=== PATIENT | female | born 1975 | race Two or more races ===

== ENCOUNTER 2022-04-14 12:56 | Outpatient (RCR) | payer OTHER, SELFPAY | END 2022-06-01 13:31 | disposition home or self-care (01) | LOC: HO.OT 12:56 | PROVIDERS: PCP Internal Medicine; Visit Provider Internal Medicine Rheumatology | DX: M19.041 Primary osteoarthritis, right hand (principal); M19.042 Primary osteoarthritis, left hand; M77.9 Enthesopathy, unspecified | CPT/HCPCS: 97110; 97166 ==

== ENCOUNTER → 2023-01-27 11:13 | Outpatient (BNVA) | payer OTHER, SELFPAY | PROVIDERS: PCP Internal Medicine; Visit Provider Orthopaedic Surgery ==

== ENCOUNTER 2024-06-26 11:25 | Outpatient (AMB) | payer OTHER, SELFPAY ==
--- NOTE | 2024-06-26 11:25 | MHC.OFFVIS ---
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 States Right LE is worst than Left LE. Pt states that she has had VV for many years and wosrening more recently, does have itching. Does have some LE swelling when on feet all day. 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 Complaints include pain/itchiness over varicosities and swelling of lower extremities. It has been affecting their daily activities including walking and standing. It is noted more so in right leg. She is not a smoker and is not a diabetic. Patient denies any previous venous surgery or injections. Patient denies any history of DVT/ PE. Patient denies any history of phlebitis. Trial of compression includes - elevation They now present for vascular evaluation regarding their varicose veins. FORMERLY [facility], [facility] Social History Current occupational status: employed Current occupation: right hand dominant Review of Systems Const Reports as per HPI and Denies weakness ENT Reports Normal hearing present and Denies dizziness Card Reports as per HPI, Denies chest pain, Denies chest pain at rest, Denies chest pain with activity, Denies dyspnea and Denies dyspnea on exertion Resp Reports as per HPI, Denies cough, Denies dyspnea and Denies dyspnea on exertion GI Reports as per HPI, Denies abdominal pain, Denies nausea and Denies vomiting Musc Denies numbness Skin/Breast Reports as per HPI, Denies erythema and Denies wounds Neuro Reports Normal hearing present, Denies dizziness, Denies numbness, Denies Sensory deficit (Neuro) and Denies weakness Psych Reports no additional complaints Endo Reports no additional complaints Physical Exam Const General: healthy appearing and no acute distress Orientation/consciousness: patient oriented x3 HEENT Head: Yes normal to inspection Ears: hearing grossly normal bilaterally Mouth: Normal oral and palatal mucosa present Resp Effort & Inspection: normal respiratory effort and able to speak in complete sentences Auscultation: clear to auscultation bilaterally Cardio Jugular venous distension: no JVD Rate: regular rate Rhythm: regular rhythm Heart sounds: S1 normal heart sound present and S2 normal heart sound present Bruits: no abdominal aortic bruits, no carotid bruits, no femoral bruits and no renal bruits Peripheral pulses: Peripheral pulses 2+ throughout GI Inspection: Yes normal to inspection Palpation (GI): No Abdominal aortic bruit present Skin General skin exam: no rashes or lesions noted Wounds: no wounds Hair: normal Neuro General: patient oriented x3 Cranial nerves: Yes Normal hearing present Cognition (Neuro): normal cognition Gait exam (Neuro): Normal gait present Motor exam (neuro): 5/5 motor strength present throughout Sensory Exam: No Sensory deficit (Neuro) Extrem Other: Bilateral lower extremities: Multiple areas of spider veins noted. Itching/pain noted in the right upper thigh area with significant spider veins. Palpable DP pulses. No swelling noted now; however patient states by the end of the day that will be swelling in bilateral lower extremities. CEAP: C - 3 E - primary A - superficial P - reflux General: Yes normal to inspection, Yes full ROM, Yes capillary refill normal and Yes normal gait Assessment & Plan Assessment & Plan (1) Varicose veins of both lower extremities with inflammation: Code(s): I83.11 - Varicose veins of right lower extremity with inflammation; I83.12 - Varicose veins of left lower extremity with inflammation Category: Medical Plan: Tammie is presenting today as a referral for bilateral lower extremity varicose veins, worsening. In short, the patient has evidence of venous insufficiency. I have discussed the pathophysiology with the patient. In addition I have provided informational material regarding venous disease to the patient. We have discussed conservative measures including compression, elevation, and exercise. I have also provided a handout regarding appropriate use of compression stockings and where to purchase good compression stockings as well. I have taken the liberty of ordering venous insufficiency testing with the patient. They will follow up with me after testing. The patient had an opportunity to ask questions regarding the treatment plan. All questions were answered. Imaging studies, laboratory studies and physical exam results were discussed and reviewed in detail. No major barriers to understanding were identified. The patient expressed understanding and agreement with the above treatment plan. The patient is aware they should contact our office by phone for worsening of the current condition or the appearance of new symptoms. Thank you for allowing me to participate in the vascular care of this patient. If you have any questions or concerns regarding the treatment for the above condition please do not hesitate to contact me. The office telephone contact is [phone]. This note is constructed using voice recognition software. While every effort has been made to ensure accuracy, microbial specialist errors may have been included. Thank you for allowing me to participate in the care of your patient. Yours sincerely, MARIAM Quintero Orders: Orders US venous duplex LE BI 1 Week I83.11 - Varicose veins of right lower extremity with inflammation, I83.12 - Varicose veins of left lower extremity with inflammation Coding Level of Care Code New Pt Level 4 (69810) Diagnoses Varicose veins of both lower extremities with inflammation I83.11; I83.12
== END 2024-06-26 15:34 | disposition home or self-care (01) ==
PROVIDERS: PCP Internal Medicine; Visit Provider Physician Assistant Surgical
DX: I83.11 Varicose veins of right lower extremity with inflammation (principal); I83.12 Varicose veins of left lower extremity with inflammation
CPT/HCPCS: 99204

== ENCOUNTER 2024-07-19 13:50 | Emergency (ER) | payer OTHER, SELFPAY ==
[2024-07-19] VITALS (7 sets, daily range): BP systolic 146–207; BP diastolic 101–118; PULSE 68–104; RESP 14–20; TEMP 36.4–37.1; O2SAT 96–100; BMI 25.4
--- NOTE | 2024-07-19 13:54 | ED_ITS ---
HPI - General Adult General Chief complaint: Arrhythmia/Palpitations Stated complaint: palpitations, high BP Time Seen by Provider: 07/19/24 19:01 Source: patient Mode of arrival: ambulatory Limitations: no limitations History of Present Illness ED Provider: Dr. Merly Silva HPI narrative: Patient comes to the emergency room complaining of high blood pressure . Patient states that every time that she sees her OBGYN, patient has high blood pressure. However, over last few days, at work patient has had elevated blood pressures. Patient states that today at work she was feeling palpitations, askeda nurse to take her blood pressure and it was above 200. Patient states that over last few months, patient has had issues with her blood pressure increasing. Seems that patient is being titrated off of estrogen which she takes for hot flashes. Patient denies any chest pain or shortness of breath, no near syncopal episodes. Related Data Home Medications ?Medication ?Instructions ?Recorded ?Confirmed estradiol 1 mg tablet 1 mg PO DAILY 01/27/23 Previous Rx's ?Medication ?Instructions ?Recorded naproxen 500 mg tablet (Naprosyn) 500 mg PO BID #20 tabs 01/10/23 amlodipine 10 mg tablet 10 mg PO DAILY #90 tabs 07/20/24 Allergies Allergy/AdvReac Type Severity Reaction Status Date / Time Seasonal Allergies Allergy Mild Itchy Eyes Verified 07/19/24 13:56 cetirizine [From Zyrtec] AdvReac Nausea Verified 07/19/24 13:57 Review of Systems 2 Review of Systems: Constitutional : No Weight loss, No Fever, No Chills, No Night Sweats, No Fatigue, No Malaise ENT/Mouth : No Hearing loss, No Ear Pain, No Nasal Congestion, No Sinus Pain, No Hoarseness, No sore throat, No Rhinorrhea, No Swallowing Difficulty Eyes: No Eye Pain, No Swelling, No Redness, No Foreign Body, No Discharge, No Vision Changes Cardiovascular : Complaining of high blood pressure, No Chest Pain, No SOB, No Dyspnea on Exertion, No Orthopnea, No Edema, No Palpitations Respiratory : No Cough, No Sputum, No Wheezing, No Smoke Exposure, No Dyspnea Gastrointestinal : No Nausea, No Vomiting, No Diarrhea, No Constipation, No abdominal Pain, No Hematochezia, No Melena Genitourinary : no irregular bleeding, No Dysuria, No Urinary Frequency, No Hematuria, No Urinary Incontinence, No Urgency, No Flank Pain, No Urinary Flow Changes, No Hesitancy Musculoskeletal : No joint pain, No Myalgias, No Joint Swelling Skin : No Skin Lesions, No rash Neuro : No Weakness, No Numbness, No Paresthesias, No Loss of Consciousness, No Dizziness, No Headache Psych : No Anxiety/Panic, No Depression, No SI/HI/AH/VH, No Social Issues, Heme/Lymph: No Bruising, No Bleeding,No Lymphadenopathy Endocrine : No Polyuria, No Polydipsia, No Temperature Intolerance [facility] Social History Social History Alcohol intake: current Alcohol intake frequency: holidays/special occasions only Alcohol type: hard liquor Smoked in Last 30 Days: No Use of substances other than those prescribed or required for medical reasons: Yes Advance Directives: No Advance Directives Information Provided: Yes Current occupational status: employed Current occupation: right hand dominant Physical Exam ED Vital Signs: Vital Signs - 24 hr 07/19/24 13:54 07/19/24 16:59 07/19/24 18:38 Temperature 97.6 F 98.8 F Pulse Rate 104 H 91 91 Respiratory Rate 20 16 16 Blood Pressure 205/118 H 201/113 H 207/109 H Pulse Oximetry 100 98 97 Oxygen Delivery Method Room Air Room Air 07/19/24 19:33 07/19/24 21:46 07/19/24 22:00 Temperature 98.0 F 97.7 F Pulse Rate 90 68 75 Respiratory Rate 15 17 14 Blood Pressure 183/116 H 146/101 H 146/101 H Pulse Oximetry 98 97 96 Oxygen Delivery Method Room Air Room Air Room Air 07/19/24 23:27 Temperature Pulse Rate Respiratory Rate Blood Pressure 160/102 H Pulse Oximetry Oxygen Delivery Method BMI result Body Mass Index 25.4 Course Course Course Narrative: This is a rapid medical exam performed by Erika Keith NP: Additional HPI, ROS, PE not included below will be deferred to primary provider. Patient is a 49-year-old female presenting to the ED with complaint of palpitations since Monday, states they have since resolved. BP 196/123, HR 118 in triage. Plan: EKG, labs Medications Administered Discontinued Medications Generic Name Dose Route Start Last Admin Trade Name Freq PRN Reason Stop Dose Admin Amlodipine Besylate 10 mg 07/19/24 23:04 07/19/24 23:27 Amlodipine Besylate 10 Mg Tablet PO 07/19/24 23:05 10 mg ONCE ONE Administration Protocol Medical Decision Making Medical Decision Making [facility] Narrative: My interpretation of EKG: Normal sinus rhythm, heart rate 90, no ST segment depression or elevation, nonspecific T-wave inversion in lead 3, QTC 462 My interpretation of labs: Patient's hematology and chemistry did not show any obvious abnormality, troponin negative Patient's blood pressure during physical exam was 190s systolic. Patient's blood pressure has been ranging between 146 systolic up to 205 systolic. Patient states that she has had high blood pressures at her OBGYN, in the ED and in other settings as well. Patient receiving a dose of 10 mg amlodipine at this time. Patient states that several years ago she was diagnosed with hypertension, patient was started on a medication that she believes was hydrochlorothiazide, patient states that she had to urinate quite a bit and also caused her potassium to dropped significantly. Patient's blood pressure 160/102. Patient asymptomatic -patient will schedule an appointment to follow-up with a new PCP, in the meantime, patient instructed to follow-up in the walk-in clinic. However, if anything changes, new symptoms to return emergently to the emergency room. It was considered adding hydrochlorothiazide to the patient's home medication. However, as noted above, she did not tolerated years ago as she develop significant hypokalemia and frequent urination which she could not tolerate well. Differential Diagnosis Differential Diagnoses: The differential diagnosis associated with the presentation includes (Hypertension urgency, hypertensive emergency, new onset hypertension) Lab Data [facility] Lab Attestation statement: I reviewed the patient's lab results. 07/19/24 14:14 07/19/24 14:14 Labs: Lab Results 07/19/24 Range/Units 14:14 WBC 6.1 (4.8-10.8) X10*3/uL RBC 4.77 (4.20-5.50) X10*6/uL Hgb 14.0 (12.0-16.0) g/dl Hct 40.5 (37.0-47.0) % MCV 84.9 (80.0-98.0) fL MCH 29.4 (27.0-33.0) pg MCHC 34.6 (31.0-35.0) g/dl RDW 12.1 (11.0-16.0) % Plt Count 299 (160-400) X10*3/uL MPV 10.1 (9.4-12.3) fL Immature Gran % (Auto) 0.3 (0.0-0.4) % Neut % (Auto) 47.4 (45-73) % Lymph % (Auto) 43.7 H (20-40) % [place] % (Auto) 5.3 (2-11) % Eos % (Auto) 2.1 (0-4) % Baso % (Auto) 1.2 (0-2) % Lymph # (Auto) 2.7 (1.2-4.9) X10*3/uL [place] # (Auto) 0.3 (0.1-1.2) X10*3/uL Eos # (Auto) 0.1 (0.0-0.4) X10*3/uL Baso # (Auto) 0.1 (0.0-0.2) X10*3/uL Abs Immat Gran (auto) 0.02 (0.00-0.03) X10*3/uL Absolute Neuts (auto) 2.9 (2.0-8.3) x10*3/uL Absolute Nucleated RBC 0.000 (0.0-0.012) X10*3/uL Nucleated RBC % (auto) 0.0 (0.0-0.2) /100WBC Sodium 142 (135-145) mmol/L Potassium 3.9 (3.3-5.1) mmol/L Chloride 101 (96-108) mmol/L Carbon Dioxide 32 H (22-29) mmol/L Anion Gap 13 (12-20) BUN 9 (9-16) mg/dL Creatinine 0.73 (0.5-1.4) mg/dL Estim Creat Clear Calc 73.2 Estimated GFR > 60 Random Glucose 180 H (60-115) mg/dL Calcium 9.4 (8.4-10.2) mg/dL Magnesium 2.0 (1.6-2.6) mg/dL Total Bilirubin 0.4 (0.0-1.0) mg/dL AST 22 (5-31) U/L ALT 22 (0-31) U/L Alkaline Phosphatase 49 (39-117) U/L Troponin I High Sens < 2.7 (<3.5-17.0) ng/L Total Protein 8.4 H (6.5-8.0) g/dL Albumin 4.6 (3.5-5.0) g/dL TSH 2.33 (0.32-4.0) uIU/mL Critical Care Time Critical Care Time Critical Care Time: Yes Total Critical Care Time: 60 Attestation: I have personally provided critical care time. Time includes review of lab data, radiology results, discussion with consultants, and monitoring for potential decompensation. Intervention performed as documented. Discharge Plan Discharge Clinical Impression: Hypertension Patient Disposition: Home, Self-Care Instructions: Hypertension (ED) Additional Instructions: Please follow-up with your primary care physician tomorrow. If you have any worsening or new symptoms, please return to the emergency room or call 911 Prescriptions: New amlodipine 10 mg tablet 10 mg PO DAILY Qty: 90 0RF No Action estradiol 1 mg tablet 1 mg PO DAILY naproxen [Naprosyn] 500 mg tablet 500 mg PO BID Qty: 20 0RF Print Language: [place]
--- NOTE | 2024-07-19 13:56 | ECG_ITS ---
Test Reason : arrthymia Blood Pressure : / mmHG Vent. Rate : 090 BPM Atrial Rate : 090 BPM P-R Int : 168 ms QRS Dur : 082 ms QT Int : 378 ms P-R-T Axes : 055 028 -12 degrees QTc Int : 462 ms Normal sinus rhythm Possible Left atrial enlargement Cannot rule out Anterior infarct , age undetermined Abnormal ECG No previous ECGs available Referred By: Kadi Keith Electronically Signed By:SAFIA HERBERT
[2024-07-19 14:20] LABS: MANUAL DIFF FLAG NO
[2024-07-19 14:22] LABS: Basophils Absolute Auto 0.1 X10*3/uL (0.0-0.2); Basophils Percent Auto 1.2 % (0-2); Eosinophils Absolute Auto 0.1 X10*3/uL (0.0-0.4); Eosinophils Percent Auto 2.1 % (0-4); Hematocrit 40.5 % (37.0-47.0); Imm Gran Abs Auto 0.02 X10*3/uL (0.00-0.03); Imm Gran Pct Auto 0.3 % (0.0-0.4); Lymphocytes Absolute Auto 2.7 X10*3/uL (1.2-4.9); Lymphocytes Percent Auto 43.7 % (20-40); Mean Corpuscular HGB Conc 34.6 g/dl (31.0-35.0); Mean Corpuscular Hemoglobin 29.4 pg (27.0-33.0); Mean Corpuscular Volume 84.9 fL (80.0-98.0); Mean Platelet Volume 10.1 fL (9.4-12.3); Monocytes Absolute Auto 0.3 X10*3/uL (0.1-1.2); Monocytes Percent Auto 5.3 % (2-11); Neutrophils Absolute Auto 2.9 x10*3/uL (2.0-8.3); Neutrophils Percent Auto 47.4 % (45-73); Platelet Count 299 X10*3/uL (160-400); Red Blood Count 4.77 X10*6/uL (4.20-5.50); Red Cell Distribution Width 12.1 % (11.0-16.0); White Blood Count 6.1 X10*3/uL (4.8-10.8)
[2024-07-19 14:47] LABS: Troponin-I High Sensitivity < 2.7 ng/L (<3.5-17.0)
[2024-07-19 14:51] LABS: Alanine Aminotransferase 22 U/L (0-31); Albumin Level 4.6 g/dL (3.5-5.0); Alkaline Phosphatase 49 U/L (39-117); Anion Gap 13 (12-20); Aspartate Amino Transferase 22 U/L (5-31); Bilirubin Total 0.4 mg/dL (0.0-1.0); Blood Urea Nitrogen 9 mg/dL (9-16); Calcium 9.4 mg/dL (8.4-10.2); Carbon Dioxide 32 mmol/L (22-29); Chloride 101 mmol/L (96-108); Creatinine Clr Calc Pharmacy 73.2; Estimated Glomerular Filt Rate > 60; Glucose Random 180 mg/dL (60-115); Potassium 3.9 mmol/L (3.3-5.1); Sodium 142 mmol/L (135-145); Total Protein 8.4 g/dL (6.5-8.0)
[2024-07-19 15:03] LABS: TSH reflex Free T4 2.33 uIU/mL (0.32-4.0)
--- NOTE | 2024-07-19 17:03 | PC.NURSE ---
patient noticed to still be in waiting room. brought into triage and vitals re assessed. BP remains elevated and patient continues to have palpations. charge made aware and asked to bring back to main ED.
[2024-07-19] MEDS: amLODIPine Besylate 10 MG TABLET PO (23:27)
[2024-07-20 00:29] VITALS: BP 169/97; PULSE 88; RESP 12; O2SAT 96
[2024-07-20 00:57] VITALS: BP 169/97; PULSE 88; RESP 16; TEMP 36.6; O2SAT 98
== END 2024-07-20 00:58 | disposition home or self-care (01) ==
PROVIDERS: Registered Nurse Emergency; Emergency Provider Emergency Medicine; PCP Internal Medicine
DX: I10 Essential (primary) hypertension (principal); R00.2 Palpitations; Z79.899 Other long term (current) drug therapy
CPT/HCPCS: 36415; 80053; 83735; 84443; 84484; 85025; 93005; 99283; 99285

== ENCOUNTER → 2024-07-19 13:56 | Outpatient (BNV) | payer OTHER, SELFPAY | PROVIDERS: Emergency Provider Emergency Medicine; PCP Internal Medicine; Visit Provider Internal Medicine | DX: R94.31 Abnormal electrocardiogram [ECG] [EKG] (principal) | CPT/HCPCS: 93010 ==

== ENCOUNTER 2024-08-07 12:46 | Outpatient (REF) | payer OTHER, SELFPAY | END 2024-08-07 12:47 | disposition home or self-care (01) | LOC: HO.US 12:46 | PROVIDERS: PCP Internal Medicine; Visit Provider Physician Assistant Surgical | DX: Z13.89 Encounter for screening for other disorder (principal) ==

== ENCOUNTER → 2024-08-19 08:11 | Outpatient (REF) | payer OTHER, SELFPAY | LOC: HO.CARD 08:11 | PROVIDERS: PCP Internal Medicine; Visit Provider Internal Medicine | DX: R00.2 Palpitations (principal) | CPT/HCPCS: 93225 ==

== ENCOUNTER 2024-08-29 10:28 | Outpatient (REF) | payer OTHER, SELFPAY ==
--- NOTE | ~2024-08-29 | US_ITS ---
EXAMINATION: US LOWER EXTREMITY VENOUS (REFLUX EXAM), BILATERAL CLINICAL INFORMATION: Varices with inflammation COMPARISON: None. TECHNIQUE: Color flow triplex imaging and compression Doppler was performed to evaluate both the deep and the superficial systems bilaterally. To evaluate the superficial system, the examination was performed in the upright position. Color-flow Doppler ultrasound and compression ultrasound were utilized. In addition, maneuvers were utilized to demonstrate reflux. FINDINGS: 1. DEEP VENOUS ULTRASOUND OF THE RIGHT LOWER EXTREMITY: Common Femoral Vein: Compressible, normal respiratory variation and augmented flow. Femoral Vein: Compressible, normal color flow and augmentation. Popliteal Vein: Compressible, normal augmentation. Deep Reflux: There is no evidence of reflux in the deep system in either the common femoral vein, superficial femoral or the popliteal vein. There is no evidence of a Galvan's cyst. 2. SUPERFICIAL ULTRASOUND WITH DOPPLER OF RIGHT LOWER EXTREMITY: GREAT SAPHENOUS VEIN: Saphenofemoral Junction: 0.6 cm; Reflux: 0 ms Proximal Thigh: 0.4 cm; Reflux: 0 ms Mid Thigh: 0.2 cm; Reflux: 0 ms Distal Thigh: 0.2 cm; Reflux: 0 ms At Knee: 0.2 cm; Reflux: 0 ms Proximal Calf: 0.2 cm; Reflux: 0 ms Mid Calf: 0.1 cm; Reflux: 0 ms Distal Calf: 0.2 cm; Reflux: 0 ms DUPLICATED MEDIAL GREAT SAPHENOUS VEIN: Diameter: None imaged Reflux: NA DUPLICATED LATERAL GREAT SAPHENOUS VEIN: Diameter: 0.1 cm. Reflux: NA SMALL SAPHENOUS VEIN: Saphenopopliteal Junction: 0.1 cm; Reflux: 0 ms Proximal: 0.1 cm; Reflux: 0 ms Distal: 0.1 cm; Reflux: 0 ms VEIN OF GIACOMINI: Size: NA Reflux: NA PERFORATORS: Location: None imaged Size: NA Reflux: NA VARICOSITIES: Location: None imaged. Size: NA Reflux: NA 3. DEEP VENOUS ULTRASOUND OF THE LEFT LOWER EXTREMITY: Common Femoral Vein: Compressible, normal respiratory variation and augmented flow. Femoral Vein: Compressible, normal color flow and augmentation. Popliteal Vein: Compressible, normal augmentation. Deep Reflux: There is no evidence of reflux in the deep system in either the common femoral vein, superficial femoral or the popliteal vein. There is no evidence of a Galvan's cyst. 4. SUPERFICIAL ULTRASOUND WITH DOPPLER OF LEFT LOWER EXTREMITY: GREAT SAPHENOUS VEIN: Saphenofemoral Junction: 0.7 cm; Reflux: 0 ms Proximal Thigh: 0.3 cm; Reflux: 0 ms Mid Thigh: 0.2 cm; Reflux: 0 ms Distal Thigh: 0.2 cm; Reflux: 0 ms At Knee: 0.2 cm; Reflux: 0 ms Proximal Calf: 0.2 cm; Reflux: 0 ms Mid Calf: 0.2 cm; Reflux: 0 ms Distal Calf: 0.1 cm; Reflux: 3064 ms DUPLICATED MEDIAL GREAT SAPHENOUS VEIN: Diameter: None imaged Reflux: NA DUPLICATED LATERAL GREAT SAPHENOUS VEIN: Diameter: None imaged. Reflux: NA SMALL SAPHENOUS VEIN: Saphenopopliteal Junction: 0.1 cm; Reflux: 0 ms Proximal: 0.1 cm; Reflux: 1880 ms Distal: 0.2 cm; Reflux: 0 ms VEIN OF GIACOMINI: Size: 0.2 cm. Reflux: NA PERFORATORS: Location: None imaged Size: NA Reflux: NA VARICOSITIES: Location: None Imaged Size: NA Reflux: NA US/US venous insuf bilat IMPRESSION: Right: No venous insufficiency. Left: Venous insufficiency, great saphenous vein at the level of the ankle. Venous insufficiency, small saphenous vein at the mid calf. Electronically signed by: Romero Padilla MD 08/29/2024 01:15 PM [facility]DR[facility]
--- OUTSIDE RECORDS SUMMARY | 2024-08-29 14:00 | XMS_ITS | Encounter Summary ---
Author Organization [employer] [facility] Address [address] [place] [address] Care Team Providers Care Supervisor Lending Activities Name Role Phone Rui Quiñones MD Primary Care Provider [phone] Encounter Details Date Type Department Care Team Description 09/08/2016 Night Triage Doc Medical Records [address] [place] [id number] Abstract, Provider Social History Tobacco Use Types Packs/Day Years Used Date Smoking Tobacco: Former Cigarettes 0.3 3 Q uit: 07/31/2007 Smokeless Tobacco: Never Alcohol Use Standard Drinks/Week Comments Yes 0 (1 standard drink = 0.6 oz pur e alcohol) occas - whiskey or vodka Sex Assigned at Date Recorded Not on file documented as of this encounter Plan of Treatment Not on file documented as of this encounter Visit Diagnoses Not on filedocumented in this encounter Care Teams Supervisor Lending Activities Relationship Specialty Start Date End Date Rui Quiñones MD [address], [place] [id number] PCP - General Internal Medicine 05/13/16 documented as of this encounter
--- OUTSIDE RECORDS SUMMARY | 2024-08-29 14:00 | XMS_ITS | Encounter Summary ---
Author Organization [facility] Address [address] [place] [address] Care Team Providers Care Manager Of Internal Name Role Phone Rui Quiñones MD Primary Care Provider [phone] Encounter Details Date Type Department Care Team Description 02/06/2023 Pt. Non Urgent Medical Question [facility] [address] [address] Carolyn Petit DO Social History Tobacco Use Types Packs/Day Years Used Date Smoking Tobacco: Former Cigarettes 0.3 3 Q uit: 07/31/2007 Smokeless Tobacco: Never Alcohol Use Standard Drinks/Week Comments No 0 (1 standard drink = 0.6 oz pur e alcohol) occas - whiskey or vodka Sex Assigned at Date Recorded Not on file documented as of this encounter Miscellaneous Notes * Telephone Encounter - Corrine Michael L.P.NJohn - 02/06/2023 1:04 PM EDTFrom: Tammie Saez To: Paige Petit Sent: 02/06/2023 12:52 PM EDT Subject: Supplements Hi Doctor, I hope that you are having fun this summer w your loved ones. Question, is it okay if I added supplements to my daily diet? I have seen online supplements that say they help w weight gain (to loose weight). I usually take a multivitamin w [place] 3 plus vitamins:A, B1, E, Magnesium, Collagen w Biotin & vit . C. Also vitamin D3. I'm starting to notice and feel a bit heavier, especially in the abdominal area. Do you think that I should start an exercise routine? I've bn very sedentary lately. Other than that, the mood swings and hot flashes are gonna! Ja I appreciate your time. Sincerely, Eliana documented in this encounter Plan of Treatment Not on file documented as of this encounter Visit Diagnoses Not on filedocumented in this encounter Care Teams Manager Of Internal Relationship Specialty Start Date End Date Rui Quiñones MD [address] [place] [address] PCP - General Internal Medicine 05/13/16 documented as of this encounter
--- OUTSIDE RECORDS SUMMARY | 2024-08-29 14:00 | XMS_ITS | Encounter Summary ---
Author Organization [facility] Address [address] [place] [address] Care Team Providers Care Integrity Assessor Name Role Phone Rui Quiñones MD Primary Care Provider [phone] Reason for Referral * Consultation (Urgent) - Authorized Specialty Diagnoses / Procedures Referred By Contact Referred To Contact Obstetrics and Gynecology Diagnoses Hot flashes Rui Quiñones MD [address] [place] [address] [facility] [address] Referral ID Status Reason Start Date Expiration Date Visits Requested Visits Authorized [id number] Authorized Specialty Services Required 08/27/2024 08/27/2025 1 1 Reason for Visit * Reason Comments Hypertension Follow up Encounter Details Date Type Department Care Team (Late st Contact Info) Description 08/27/2024 1:30 PM EST Office Visit Internal Medicine - [address] [phone] Rui Quiñones MD [address] [place] [address] Hypertension, unspecified type (Primary Dx); Palpitations; Hot flashes Social History Tobacco Use Types Packs/Day Years Used Date Smoking Tobacco: Former Cigarettes Q uit: 07/31/2007 Smokeless Tobacco: Never Tobacco Cessation:Counseling Given: Not Answered Alcohol Use Standard Drinks/Week Comments No 0 (1 standard drink = 0.6 oz pur e alcohol) Sex and Gender Information Value Date Recorded Sex Assigned at Not on file Gender Identity Not on file Sexual Orientation Not on file Job Start Date Occupation Industry Not on file Not on file Not on file documented as of this encounter Last Filed Vital Signs Vital Sign Reading Time Taken Comments Blood Pressure 138/90 08/27/2024 1:26 PM EST Pulse 96 08/27/2024 1:26 PM EST Temperature - - Respiratory Rate - - Oxygen Saturation - - Inhaled Oxygen Concentration - - Weight 61.2 kg (135 lb) 08/27/2024 1:26 PM EST Height 152.4 cm (5') 08/27/2024 1:26 PM EST Body Mass Index 26.37 08/27/2024 1:26 PM EST documented in this encounter Ordered Prescriptions Prescription Sig Dispensed Refills Start Date End Da te lisinopriL (PRINIVIL,ZESTRIL) 5 mg tablet Take 1 tablet (5 mg total) by mouth 1 (one) time each day. 30 each 5 08/27/2024 documented in this encounter Progress Notes * Rui Quiñones MD - 08/27/2024 1:30 PM EST CHIEF COMPLAINT: Chief Complaint Patient presents with Hypertension Follow up IDENTIFIER: Tammie Saez is a 49 y.o. old female. History of Present Illness The patient is a 49-year-old woman who presents to the office today for a blood pressure follow-up. Please see my office visit note from 08/12/2024. On the previous visit, her blood pressure was elevated. She was advised to start taking amlodipine 5 mg daily and if her blood pressure remained over 140/90, to increase the dosage to amlodipine 10 mg daily. She also complained of palpitations for which a Holter monitor was ordered and a referral to cardiology was placed. She has already undergone lab work which showed normal H & H, no leukocytosis, normal electrolytes, and normal thyroid level. She reports no peripheral edema. She has been adhering to the prescribed regimen of amlodipine 10 mg daily, which she initiated on Monday. H She experienced palpitations last Monday while waiting to be seated at a restaurant in [place]. These episodes typically last less than 10 seconds. She recalls feeling hungry during the last episode did not have adequate hydration. She has completed her Holter monitor test, but the results are pending. She started having more hot flashes since her estradiol was discontinued. This correlates with her palpitations. ROS: GENERAL: No malaise, significant weight loss or fever HEENT: No changes in hearing or vision, nose bleeds or other nasal problems RESPIRATORY: No cough, wheezing or shortness of breath CARDIOVASCULAR: See HPI GI: No abdominal discomfort, blood in stools or black stools NECK: No lumps, goiter, pain or significant neck swelling : No dysuria, frequency or incontinence MUSCULOSKELETAL: No joint pain or swelling, back pain, or muscle pain. 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 IBS (irritable bowel syndrome) 12/26/2014 HSV infection 09/24/2014 Past Surgical History: Procedure Laterality Date HYSTERECTOMY 03/16/2018 PROCEDURE: HISTORICAL TOTAL HYSTERECTOMY WITH BSO TUBAL LIGATION 1993 PROCEDURE: HISTORICAL TUBAL LIGATION SOCIAL HISTORY: Social History Tobacco Use Smoking status: Former Current packs/day: 0.00 Types: Cigarettes Quit date: 07/31/2007 Years since quittin.0 Smokeless tobacco: Never Substance Use Topics Alcohol use: No FAMILY HISTORY: Family History Problem Relation Name Age of Onset Diabetes Mother HPL Coronary artery disease Father angioplasty with stent, HTN, HPL Breast cancer Aunt 56.00 mothers side Heart attack Brother 44.00 age 44, Asthma Other (Other: gastritis ) Aunt Family Status Relation Name Status Mother Alive Father Alive Aunt (Not Specified) Brother (Not Specified) Aunt (Not Specified) Aunt (Not Specified) Brother (Not Specified) No partnership data on file MEDICATIONS DISCONTINUED/REORDERED: There are no discontinued medications. ACTIVE MEDICATIONS: Outpatient Medications Marked as Taking for the 08/27/24 encounter (Office Visit) with Rui Quiñones MD Medication Sig Dispense Refill amLODIPine (NORVASC) 10 mg tablet Take 1 tablet (10 mg total) by mouth 1 (one) time each day. ALLERGIES: Allergies Allergen Reactions Bisacodyl Wheezing Cetirizine Other Heart racing and drowsy PHYSICAL EXAM: Visit Vitals BP (!) 138/90 Pulse 96 Ht 1.524 m (60 ) Wt 61.2 kg (135 lb) LMP (LMP Unknown) BMI 26.37 kg/m?? OB Status Hysterectomy Smoking Status Former BSA 1.58 m?? Physical Exam Eyes: PERRL, conjunctiva and sclera normal. Ears: negative. Nose/Sinus: negative. Mouth/Throat: no erythema or exudates. Neck: negative. Cardiovascular: regular rate, regular rhythm and no murmur. Respiratory: clear to auscultation. Lymphatic: grossly normal. Gastrointestinal: Bowel sounds normoactive, no bruits, soft, non-tender, without organomegaly or palpable masses. Extremities: No edema and Normal pulses bilaterally. Skin: negative Neurological: AAO x3 Assessment & Plan Hypertension, unspecified type Blood pressure did improve but still suboptimal. She has been advised to invest in a brachial bloodpressure monitor and to record her readings twice daily, once in the morning and once in the evening, for trend analysis. She has been counseled on lifestyle modifications, including dietary changes to limit sodium intake to less than 2000 mg per day, increased water consumption, and stress management through breathing exercises and Ronnie Chi. She has been started on lisinopril 5 mg daily. Will monitor BMP. Continue amlodipine 10 mg daily. Palpitations Her palpitations could potentially be attributed to hot flashes. The results of her Holter monitor test are pending. Advised her to follow-up with gynecology and referral has been placed for hot flashes. I have obtained verbal consent from Tammie Saez prior to the recording. I have advised Tammie Saez that she may refuse the recording and require the recording to be turned off at any time during this encounter. Today's documentation was made using voice recognition software.This note may contain grammatical errors secondary to this software. documented in this encounter Plan of Treatment Upcoming Encounters Date Type Department Care Team (Late st Contact Info) Description 09/24/2024 3:00 PM EST Office Visit Internal Medicine - [address] [address] Rui Quiñones MD [address] [place] [address] Scheduled Orders Name Type Priority Associated Diagnoses Orde r Schedule Basic metabolic panel Lab Routine Hypertension, unspecified type 1 Occurrences starting 08/27/2024 until 08/27/2025 Scheduled Referrals Name Type Priority Associated Diagnoses Order Schedule Ambulatory referral to Obstetrics / Gynecology Outpatient Referral Routine Hot flashes 1 Occurrences starting 08/27/2024 until 08/27/2025 documented as of this encounter Visit Diagnoses Diagnosis Hypertension, unspecified type- Primary Palpitations Hot flashes documented in this encounter Discontinued Medications Medication Sig Discontinue Reason Start Date End Da te estradioL (ESTRACE) 1 mg tablet Take 1 tablet (1 mg total) by mouth 1 (one) time each day. Discontinued by another clinician 05/15/2024 08/27/2024 triamcinolone (KENALOG) 0.1 % cream Apply thin layer to affected area two times a day for up to two weeks Therapy completed 04/30/2021 08/27/2024 documented as of this encounter Care Teams Integrity Assessor Relationship Specialty Start Date End Date Rui Quiñones MD [address] [place] [address] PCP - General Internal Medicine 05/13/16 documented as of this encounter
--- OUTSIDE RECORDS SUMMARY | 2024-08-29 14:00 | XMS_ITS | Encounter Summary ---
Author Organization [employer] [facility] Address [address] [place] [address] Care Team Providers Care Grounds Worker Name Role Phone Rui Quiñones MD Primary Care Provider [phone] Encounter Details Date Type Department Care Team Description 03/16/2018 [facility] Medical Records [address] [place] [address] Carolyn Petit DO Social History Tobacco Use [...] on filedocumented in this encounter Care Teams Grounds Worker Relationship Specialty Start Date End Date Rui Quiñones MD [address] [place] [address] PCP - General Internal Medicine 05/13/16 documented as of this encounter
--- OUTSIDE RECORDS SUMMARY | 2024-08-29 14:00 | XMS_ITS | Encounter Summary ---
Author Organization [employer] [facility] Address [address] [place] [address] Care Team Providers Care Suspension Cord Tier Name Role Phone Rui Quiñones MD Primary Care Provider [phone] Encounter Details Date Type Department Care Team Description 01/27/2023 Set Up And Lay Out Inspector Report Medical Records [address] [place] [address] Terry Deutsch MD Social History Tobacco Use Types Packs/Day Years [...] on filedocumented in this encounter Care Teams Suspension Cord Tier Relationship Specialty Start Date End Date Rui Quiñones MD [address] [place] [address] PCP - General Internal Medicine 05/13/16 documented as of this encounter
--- OUTSIDE RECORDS SUMMARY | 2024-08-29 14:00 | XMS_ITS | Encounter Summary ---
Author Organization [employer] [facility] Address [address] [place] [address] Care Team Providers Care Pilot Highway Patrol Name Role Phone Rui Quiñones MD Primary Care Provider [phone] [phone] Encounter Details Date Type Department Care Team Description 03/20/2018 Orders Only Medical Records [address] [place] [address] Carolyn Petit DO Social History Tobacco Use [...] on file documented as of this encounter Procedures Procedure Name Priority Date/Time Associated Diagnosis Comments OUTSIDE PATHOLOGY Routine 03/16/2018 documented in this encounter Results * OUTSIDE PATHOLOGY (03/16/2018) Carolyn Petit DO OUTSIDE LAB documented in this encounter Visit Diagnoses Not on filedocumented in this encounter Care Teams [employer] Patrol Relationship Specialty Start Date End Date Rui Quiñones MD [address] [place], [place] [id number] PCP - General Internal Medicine 05/13/16 documented as of this encounter
--- OUTSIDE RECORDS SUMMARY | 2024-08-29 14:00 | XMS_ITS | Encounter Summary ---
Author Organization [facility] Address [address] [place] [address] Care Team Providers Care Senior Cisco Network Engineer Name Role Phone Rui Quiñones MD Primary Care Provider [phone] Reason for Referral * Consultation (Urgent) - Authorized Specialty Diagnoses / Procedures Referred By Néstor valladares Referred To Contact Cardiology Diagnoses Hypertension, unspecified type Palpitations Rui Quiñones MD [address] [place] [address] [address] Referral ID Status Reason Start Date Expiration Date Visits Requested Visits Authorized [id number] Authorized Specialty Services Required 08/12/2024 08/12/2025 1 1 * Cardiac Stress Testing (Routine) - Authorized Specialty Diagnoses / Procedures Referred By Contamanuel valladares Referred To Contact Cardiology Diagnoses Palpitations Procedures Cardiac holter monitor (<= 48 hours) NC ECG EXTERNAL UP TO 48 HOURS RECORDING NC ECG EXTERNAL < 48 HOURS CONTINUOUS RECORDING/STORAGE R&I BY A PHYS/QHP NC EXTERNAL ECG UP TO 48 HRS INCL RECORDING SCANNING ANLYS W REPORT Rui Quiñones MD [address] [place] [address] [facility] Referral ID Status Reason Start Date Expiration Date V isits Requested Visits Authorized [id number] Authorized 08/12/2024 08/12/2025 1 1 Reason for Visit * Reason Comments ED Follow-up Encounter Details Date Type Department Care Team (Late st Contact Info) Description 08/12/2024 2:00 PM EST Office Visit Internal Medicine - [facility] [address] [place] [address] Rui Quiñones MD [address] [place] [address] Hypertension, unspecified type (Primary Dx); Palpitations Social History Tobacco Use Types Packs/Day Years Used Date Smoking Tobacco: Former Cigarettes Q uit: 07/31/2007 Smokeless Tobacco: Never Alcohol [...] Sign Reading Time Taken Comments Blood Pressure 170/98 08/12/2024 2:21 PM EST Pulse 96 08/12/2024 2:21 PM EST Temperature - - Respiratory Rate - - Oxygen Saturation - - Inhaled Oxygen Concentration - - Weight 61.1 kg (134 lb 9.6 oz) 08/12/2024 1:55 P M EST Height 152.4 cm (5') 08/12/2024 1:55 PM EST Body Mass Index 26.29 08/12/2024 1:55 PM EST documented in this encounter Progress Notes * Rui Quiñones MD - 08/12/2024 2:00 PM EST CHIEF COMPLAINT: Chief Complaint Patient presents with ED Follow-up IDENTIFIER: Tammie Saez is a 49 y.o. old female. HPI Patient is a 49-year-old woman who presents to the office today for an ER follow-up. She went to [facility] on 07/19/2024 complaining of high blood pressure. She states that whenever she is at her [employer], blood pressure is high. She also noted to have elevated blood pressure at work. She also felt palpitations. Patient states she has been titrated off estrogen which she was taking for hot flashes. In the ED her blood pressure is elevated 196/123 with a heart rate of 118. EKG showed normal sinus rhythm with heart rate of 90 bpm, no ST segment depression or elevation, nonspecific T wave inversions in lead III, QTc 462. Lab work showed WBC 6.1, hemoglobin 14, hematocrit 40.5, platelet 299. Sodium 142, potassium 3.9, chloride 101, bicarbonate 32, BUN 9, creatinine 0.73, glucose 180. TSH 2.33 AST 22, ALT 22, alkaline phosphatase 49 Patient was started on amlodipine 10 mg daily Discharge home. However, patient states she did not even start the amlodipine 10 mg daily. She denies any headache,blurry vision, double vision, dizziness, chest pain. However, she is going through menopausal symptoms. She states that her symptoms started when she was taken off the estrogen. She still gets palpitations that last for a few seconds. It is only been happening since a month. ROS: GENERAL: No malaise, significant weight loss [...] Outpatient Medications Marked as Taking for the 08/12/24 encounter (Office Visit) with Rui Quiñones MD Medication Sig Dispense Refill amLODIPine (NORVASC) 10 mg tablet Take 1 tablet (10 mg total) by mouth 1 (one) time each day. estradioL (ESTRACE) 1 mg tablet Take 1 tablet (1 mg total) by mouth 1 (one) time each day. ALLERGIES: Allergies Allergen Reactions Bisacodyl Wheezing Cetirizine Other Heart racing and drowsy PHYSICAL EXAM: Visit Vitals BP (!) 170/98 Pulse 96 Ht 1.524 m (60 ) Wt 61.1 kg (134 lb 9.6 oz) LMP (LMP Unknown) BMI 26.29 kg/m?? OB Status Hysterectomy Smoking Status Former BSA 1.58 m?? EYES: PERRL, conjunctiva and sclera normal NOSE/SINUS: negative MOUTH/THROAT: no erythema or exudates NECK: negative HEART: regular rate, regular rhythm and no murmur LUNG: clear to auscultation LYMPH NODES: grossly normal ABDOMEN: Bowel sounds normoactive, no bruits, soft, non-tender, without organomegaly or palpable masses EXTREMITIES: No edema and Normal pulses bilaterally. NEURO: Awake, alert and oriented x 3, Normal gait and No involuntary motions. SKIN: negative Assessment & Plan Hypertension, unspecified type Blood pressure is elevated. She will start taking amlodipine 5 mg daily for the first 5 days and ifher blood pressure still over 140/90, she will increase to amlodipine 10 mg daily. Low-sodium diet discussed. She will keep a blood pressure log and check her blood pressure daily and let me know within 5 days. Follow-up next week for blood pressure check. Orders: Ambulatory referral to Cardiology; Future Palpitations For palpitations, will obtain Holter monitor. Referral to cardiology placed. Orders: Cardiac holter monitor (<= 48 hours); Future Ambulatory referral to Cardiology; Future Today's documentation was made using voice recognition software.This note may contain grammatical errors secondary to this software. documented in this encounter Plan of Treatment Upcoming Encounters Date Type Department Care Team (Late st Contact Info) Description 09/24/2024 3:00 PM EST Office Visit Internal Medicine - [address] [address] Rui Quiñones MD [address] [place] [address] Scheduled Orders Name Type Priority Associated Diagnoses Orde r Schedule Cardiac holter monitor (<= 48 hours) Cardiac Services Routine Palpitations 1 Occurrences starting 08/12/2024 until 08/12/2025 Scheduled Referrals Name Type Priority Associated Diagnoses Order Schedule Ambulatory referral to Cardiology Outpatient Referral Routine Hypertension, unspecified type Palpitations 1 Occurrences starting 08/12/2024 until 08/12/2025 documented as of this encounter Visit Diagnoses Diagnosis Hypertension, unspecified type- Primary Palpitations documented in this encounter Historical Medications * This list may reflect changes made after this encounter. Medication Sig Dispensed Refills Start Date End Date amLODIPine (NORVASC) 10 mg tablet Take 1 tablet (10 mg total) by mouth 1 (one) time each day. 07/22/2024 estradioL (ESTRACE) 1 mg tablet Take 1 tablet (1 mg total) by mouth 1 (one) time each day. 05/15/2024 08/27/2024 added in this encounter Care Teams Senior Cisco Network Engineer Relationship Specialty Start Date End Date Rui Quiñones MD [address] [place] [address] PCP - General Internal Medicine 05/13/16 documented as of this encounter
--- OUTSIDE RECORDS SUMMARY | 2024-08-29 14:00 | XMS_ITS | Encounter Summary ---
Author Organization [employer] [facility] Address [address] [place] [address] Care Team Providers Care Chef Concierge Name Role Phone Rui Quiñones MD Primary Care Provider [phone] Encounter Details Date Type Department Care Team Description 02/12/2018 [facility] Medical Records [address] [place] [address] Abstract, Provider Social History Tobacco Use Types [...] on filedocumented in this encounter Care Teams Chef Concierge Relationship Specialty Start Date End Date Rui Quiñones MD [address] [place], [place] [phone] PCP - General Internal Medicine 05/13/16 documented as of this encounter
--- OUTSIDE RECORDS SUMMARY | 2024-08-29 14:01 | XMS_ITS | Encounter Summary ---
Author Organization [employer] [facility] Address [address] [place] [address] Care Team Providers Care Print Operator Name Role Phone Rui Quiñones MD Primary Care Provider [phone] Encounter Details Date Type Department Care Team Description 07/03/2018 [employer] Report Medical Records [address] [place] [address] Beni Ji MD Social History Tobacco Use Types Packs/Day [...] on filedocumented in this encounter Care Teams Print Operator Relationship Specialty Start Date End Date Rui Quiñones MD [address] [place] [address] PCP - General Internal Medicine 05/13/16 documented as of this encounter
--- OUTSIDE RECORDS SUMMARY | 2024-08-29 14:01 | XMS_ITS | Encounter Summary ---
Author Organization [facility] Address [address] [place] [address] Care Team Providers Care Child'S Nurse Name Role Phone Rui Quiñones MD Primary Care Provider [phone] [phone] Reason for Visit * Reason Onset Date Comments REFERRAL 12/27/2017 Encounter Details Date Type Department Care Team Description 12/27/2017 Telephone Adult Medicine [address] [address] Rui Quiñones MD [address] [place] [address] REFERRAL Social History Tobacco Use Types Packs/Day Years Used Date Smoking Tobacco: Former Cigarettes 0.3 3 Q uit: 07/31/2007 Smokeless Tobacco: Never Alcohol Use Standard Drinks/Week Comments No 0 (1 standard drink = 0.6 oz pur e alcohol) occas - whiskey or vodka Sex Assigned at Date Recorded Not on file documented as of this encounter Miscellaneous Notes * Telephone Encounter - Sarah Mcduffie - 12/27/2017 10:44 AM EDT Left message for office to return my call regarding diagnosis. * Telephone Encounter - Joy Mandujano - 12/27/2017 10:09 AM EDT What insurance does the patient have today? BCBS Effective 04/30/09: BCBS will not retro referral requests over 90 days. If request is for this please instruct patient to call the 800# on their insurance card to appeal. Do not submit a request. Referrals cannot be processed if the insurance is not accurate. If the insurance listed above in red is NO BILLING INFORMATION FOUND FOR THIS ENCOUTNER The patients correct insurance must be obtained and registered in [facility] or their referral can not be processed. Is this a retro request? YES. If yes for what date of service do you need the retro referral? 11/30/17 and 12/07/17 Who is calling to request this referral? PT If the caller is not the patient, what is their name? N/A Ask the patient WHO referred them to this specialty: Patient was seen by external specialst BRIE VALLADARES who has now referred them to this specialty FIRST and LAST NAME of SPECIALIST PATIENT is seeing: [facility] What specialty is this? Physical Therapy DIAGNOSIS Patient is being seen for (Not a body part or a procedure): Arthritis Have you seen this SPECIALIST for this PROBLEM/DX before?YES If YES, when: 11/20/17 Have you checked REVIEW or the APPT DESK to see if this referral has already been done or has visits left? YES Is this visit:Initial Visit Address of Specialist: [address] [place] [address] Phone # of Specialist: [phone] Fax #: (if applicable): N/A Does patient have an appointment scheduled?: YES Date of appointment- (including a retro-request): 11/30/17 and 12/07/17; needs a total of 16 visits Is this appointment related to: Not MVA, WC or Surgery related documented in this encounter Plan of Treatment Not on file documented as of this encounter Visit Diagnoses Not on filedocumented in this encounter Care Teams Child'S Nurse Relationship Specialty Start Date End Date Rui Quiñones MD [address] [place] [id number] PCP - General Internal Medicine 05/13/16 documented as of this encounter
--- OUTSIDE RECORDS SUMMARY | 2024-08-29 14:01 | XMS_ITS | Clinical Summary ---
Author Organization [place] [address] [facility] Building Address [address] [place] [phone] Phone Care Team Providers Care Oven Operator Automatic Name Role Phone Rui Quiñones MD Primary Care Provider [phone] [phone] Allergies Active Allergy Reactions Criticality Noted Date Comments Bisacodyl Wheezing 04/05/2018 Cetirizine Other 08/31/2016 Heart racing and drowsy Medications Medication Sig Dispensed Refills Start Date End Date Status amLODIPine (NORVASC) 10 mg tablet Take 1 tablet (10 mg total) by mouth 1 (one) time each day. 07/22/2024 Active lisinopriL (PRINIVIL,ZESTRIL ) 5 mg tablet Take 1 tablet (5 mg total) by mouth 1 (one) time each day. 30 each 5 08/27/2024 Active triamcinolone (KENALOG) 0.1 % cream Apply thin layer to affected area two times a day for up to two weeks 04/30/2021 08/27/2024 Discontinued( Therapy completed) estradioL (ESTRACE) 1 mg tablet Take 1 tablet (1 mg total) by mouth 1 (one) time each day. 05/15/2024 08/27/2024 Discontinued( Discontinued by another clinician) Active Problems Problem Noted Date Diagnosed Date Diagnosis unknown 05/10/2024 Overview (05/10/2024): Varicose veins Essential hypertension 03/22/2019 Fibroids 06/01/2016 Overview (05/10/2024): Underwent robotic assisted hysterectomy with b/l salpingectomy and cystoscopy on 03/16/18. Hyperlipemia 03/27/2015 Arthritis of hand 12/26/2014 Overview (05/10/2024): [facility], had therapy but no follow up. IBS (irritable bowel syndrome) 12/26/2014 HSV infection 09/24/2014 Encounters Date Type Department Care Team Description 08/27/2024 1:30 PM EST Office Visit Internal Medicine - [address] [address] Rui Quiñones MD Hypertension, unspecified type (Primary Dx); Palpitations; Hot flashes 08/12/2024 2:00 PM EST Office Visit Internal Medicine - [address] [address] Rui Quiñones MD Hypertension, unspecified type (Primary Dx); Palpitations 07/18/2024 9:00 AM EST Office Visit Obstetrics and Gynecology - [address] [address] Kaley Lopez DO Asymptomatic hypertensive urgency (Primary Dx); On hormone replacement therapy from Last 3 Months Immunizations Name Administration Dates Next Due Hepatitis B (Jbpbagr-V-Ioixc , Recombivax HB-Adult) 19yo and older 12/31/2018,11/28/2018 Influenza trivalent, with pr eservative (Fluzone; Afluria) 6mo and older 06/16/2016 Tdap Tetanus diptheria acell ular pertussis (Boostrix; Adacel) 7yo and older 01/06/2014 Surgical History Surgery Date Site/Laterality Comments TUBAL LIGATION 1993 PROCEDURE: HISTORICAL TUBAL LIGATION HYSTERECTOMY 03/16/2018 PROCEDURE: HISTORICAL TOTAL HYSTERECTOMY WITH BSO Medical History Medical History Date Comments HSV infection 09/24/2014 DX:HSV infection Varicose veins 12/26/2014 DX:Varicose vein s Arthritis of hand 12/26/2014 DX:Arthritis o f hand; COMMENT: [facility], had therapy but no follow up. IBS (irritable bowel syndrome) 12/26/2014 D X:IBS (irritable bowel syndrome) Essential hypertension 03/22/2019 DX:Essent ial hypertension Family History Medical History Relation Name Comments Breast cancer Aunt 1 mothers side Other: gastritis Aunt 2 Heart attack Brother 1 age 44, As thma Coronary artery disease Father ariela oplasty with stent, HTN, HPL Diabetes Mother HPL Relation Name Status Comments Aunt 1 Aunt 2 Aunt 3 Brother 1 Brother 2 Father Alive Mother Alive Social History Tobacco Use Types Packs/Day Years [...] file Not on file Not on file Obstetrics History Para Term AB IAB SAB Ectopic Multiple Livin g Live Births 3 3 2 1 3 3 Date Outcome GA Total Labor Labor/2nd/3rd Weight Sex Type Anes PTL Quiana A1 A5 Name Clin Term 40w 0d Vag-S pont None Living Delivery Location:[facility] Term 40w 0d Vag-S pont None Living Delivery Location:[facility] 28w 0d Vag-S pont None Living Delivery Location:[facility] Last Filed Vital Signs Vital Sign Reading Time Taken Comments Blood Pressure 138/90 08/27/2024 1:26 PM EST Pulse 96 08/27/2024 1:26 PM EST Temperature - - Respiratory Rate 18 07/18/2024 9:11 AM EST Oxygen Saturation - - Inhaled Oxygen Concentration - - Weight 61.2 kg (135 lb) 08/27/2024 1:26 PM EST Height 152.4 cm (5') 08/27/2024 1:26 PM EST Body Mass Index 26.37 08/27/2024 1:26 PM EST Plan of Treatment Upcoming Encounters Date Type Department Care Team (Late st Contact Info) Description 09/24/2024 3:00 PM EST Office Visit Internal Medicine - [address] [phone] Rui Quiñones MD [address] [place] [id number] Health Maintenance Due Date Last Done Comments Breast Cancer Screening 1975 Hepatitis B Vaccines (3 of 3 - 19+ 3-dose series) 05/31/2019 12/31/2018, 11/28/2018 Cervical Cancer Screening: P ap Smear 06/01/2019 06/01/2016, 06/01/2016 Cholesterol Screening (Lipid Panel) 07/03/2022 09/28/2015 Colorectal Cancer Screening: Colonoscopy 07/03/2022 Depression Screening 07/03/2022 Social Influencers of Health Screening 07/03/2022 Hypertension/CHF/CAD Annual BMP Blood Test 07/16/2022 04/28/2020 Zoster Vaccines (1 of 2) 2023 DTaP,Tdap,and Td Vaccines (2 - Td or Tdap) 01/07/2024 01/06/2014 COVID-19 Vaccine (4 - 2023-2 5 season) 2024 02/10/2022, 05/19/2021, 04/28/2021 Influenza Vaccine (#1) 2024 0, 06/16/2016 HIV Screening Completed 10/04/2016 Hepatitis C Screening Completed 10/04/2016 MMR Vaccines Aged Out 04/07/2022, 03/07/2022 No longer eligible based on patient's age to complete this topic HIB Vaccines Aged Out No longer eligi ble based on patient's age to complete this topic HPV Vaccines Aged Out No longer eligi ble based on patient's age to complete this topic Hepatitis A Vaccines Aged Out No long er eligible based on patient's age to complete this topic IPV Vaccines Aged Out No longer eligi ble based on patient's age to complete this topic Meningococcal ACWY Vaccine Aged Out N o longer eligible based on patient's age to complete this topic Pneumococcal Vaccine: Pediatrics (0 to 5 Years) and At-Risk Patients (6 to 64 Years) Aged Out No longer eligible b ased on patient's age to complete this topic RSV Immunization Patients Under 20 months Aged Out No longer eligible b ased on patient's age to complete this topic Varicella Vaccines Aged Out No longer eligible based on patient's age to complete this topic Procedures Procedure Name Priority Date/Time Associated Diagnosis Comments CARDIAC HOLTER MONITOR 08/28/2024 ANNUAL BMP BLOOD TEST Routine 04/28/2020 HEPATITIS C SCREENING Routine 10/04/2016 HIV SCREENING Routine 10/04/2016 HPV Routine 06/01/2016 LIPID PANEL Routine 09/28/2015 from Last 3 Months or Most Recently Relevant to Health Maintenance Results * Cardiac holter monitor (<= 48 hours) (08/28/2024) Anatomical Region Laterality Modality Cardiac Diagnost ic Provider Mary [facility] CARDIAC SERVI GREGORIO PROCEDURES * Annual BMP Blood Test (04/28/2020) Pathologist [facility] Annual BMP Blood Test Abstracted Historical Provider MD PHIL CARRILLO E * HIV Screening (10/04/2016) Pathologist [facility] HIV Screening Abstracted Historical Provider MD PHIL CARRILLO E * Hepatitis C Screening (10/04/2016) Pathologist [facility] Hepatitis C Screening Abstracted Historical Provider MD PHIL CARRILLO * Cervical Cancer Screening: HPV (06/01/2016) [facility] Cervical Cancer Screening: HPV No interpreta tion,abstr acted Historical Provider MD PHIL CARRILLO E * (ABNORMAL) Lipid panel (09/28/2015) [facility] LDL/HDL Ratio 4 0 - 4 Triglycerides 118 0 - 150 mg/dL Cholesterol 253(A) 0 - 200 mg/dL HDL 71 40 mg/dL LDL Cholesterol 159(A) 0 - 100 mg/dL Blood Venous blood specimen / Unknown Historical Provider LAB BLOOD ORDERAB LES from Last 3 Months or Most Recently Relevant to Health Maintenance Care Teams Oven Operator Automatic Relationship Specialty Start Date End Date Rui Quiñones MD [address] [place] [id number] PCP - General Internal Medicine 05/13/16
--- OUTSIDE RECORDS SUMMARY | 2024-08-29 14:01 | XMS_ITS | Encounter Summary ---
Author Organization [facility] Address [address] [place] [address] Care Team Providers Care Sales Project Manager Name Role Phone Rui Quiñones MD Primary Care Provider [phone] Encounter Details Date Type Department Care Team Description 05/28/2019 Orders Only Medical Records [address] [place] [address] Abstract, Provider Social History Tobacco Use Types [...] Name Priority Date/Time Associated Diagnosis Comments OUTSIDE LAB Routine 05/27/2019 documented in this encounter Results * OUTSIDE LAB (05/27/2019) Sandi Mohamud RATING SPECIALIST LAB documented in this encounter Visit Diagnoses Not on filedocumented in this encounter Care Teams Sales Project Manager Relationship Specialty Start Date End Date Rui Quiñones MD [address] [place] [phone] PCP - General Internal Medicine 05/13/16 documented as of this encounter
--- OUTSIDE RECORDS SUMMARY | 2024-08-29 14:01 | XMS_ITS | Encounter Summary ---
Author Organization [email or web address] [facility] Address [address] [place] [address] Care Team Providers Care Bung Driver Name Role Phone Rui Quiñones MD Primary Care Provider [phone] Encounter Details Date Type Department Care Team Description 04/13/2022 Orders Only Medical Records [address] [place] [id number] Abstract, Provider Social History Tobacco Use Types [...] on filedocumented in this encounter Care Teams Bung Driver Relationship Specialty Start Date End Date Rui Quiñones MD [address], [place] [phone] PCP - General Internal Medicine 05/13/16 documented as of this encounter
--- OUTSIDE RECORDS SUMMARY | 2024-08-29 14:01 | XMS_ITS | Encounter Summary ---
Author Organization [facility] Address [address] [place] [address] Care Team Providers Care Oil Pipeline Dispatcher Name Role Phone Rui Quiñones MD Primary Care Provider [phone] Reason for Visit * Reason Comments E-prescribe Rx Request Encounter Details Date Type Department Care Team Description 04/11/2020 Refill Adult Medicine - [address] [address] Gregoria Healy PA-C [address] [place] [address] E-prescribe Rx Request Social History Tobacco Use Types Packs/Day Years Used Date Smoking Tobacco: Former Cigarettes 0.3 3 Q uit: 07/31/2007 Smokeless Tobacco: Never Alcohol Use Standard Drinks/Week Comments No 0 (1 standard drink = 0.6 oz pur e alcohol) occas - whiskey or vodka Sex Assigned at Date Recorded Not on file documented as of this encounter Miscellaneous Notes * Telephone Encounter - Sandi Mohamud NP - 04/13/2020 9:41 AM EDT Dose was increased to 25 mg daily. * Telephone Encounter - Addis Machuca M.A. - 04/13/2020 9:11 AM EDT Last office visit 03.16.20 Lab Results Component Value Date NA 137 03/22/2019 K 3.6 03/22/2019 CO2 33 03/22/2019 CL 98 03/22/2019 BUN 7 03/22/2019 CREAT 0.64 03/22/2019 GLU 135 03/22/2019 CA 10.0 03/22/2019 GFR > 60 03/22/2019 * Telephone Encounter - Bettie De Los Santos M.A. - 04/11/2020 11:48 AM EDT Patient would like script to be: E-PRESCRIBED/FAXED TO PHARMACY WHEN WAS THE PATIENT'S LAST APPOINTMENT IN ADULT MEDICINE? 03/16/20 WHEN WAS THE LAST TIME THE PATIENT SAW THEIR PCP? 10/22/19 Does patient have an upcoming appointment? Yes 05/11/20 (THE MEDICATION REQUESTED IS ON THE MED LIST ABOVE) All of the medications requested were on the CURRENT MEDS list Did you check the Pharmacy information above?: YES Patient wants: 90 -day supply Is this a mail order prescription request ? NO If the refill is from a FAXED refill request what is the RX # listed on the fax? N/A Patients current insurance carrier is: Payor: -[place]/HMO FFS / Plan: HMO $25 [id number] / ProductType: HMO [id number] documented in this encounter Plan of Treatment Not on file documented as of this encounter Visit Diagnoses Not on filedocumented in this encounter Care Teams Oil Pipeline Dispatcher Relationship Specialty Start Date End Date Rui Quiñones MD [address] [place] [id number] PCP - General Internal Medicine 05/13/16 documented as of this encounter
== END 2024-08-29 10:29 | disposition home or self-care (01) ==
LOC: HO.US 10:28
PROVIDERS: PCP Internal Medicine; Visit Provider Physician Assistant Surgical
DX: I83.11 Varicose veins of right lower extremity with inflammation (principal); I83.12 Varicose veins of left lower extremity with inflammation
CPT/HCPCS: 93970

== ENCOUNTER → 2024-08-29 10:29 | Outpatient (BNV) | payer OTHER, SELFPAY | PROVIDERS: PCP Internal Medicine; Visit Provider Radiology Diagnostic Radiology | DX: I87.2 Venous insufficiency (chronic) (peripheral) (principal) | CPT/HCPCS: 93970 ==

== ENCOUNTER 2024-09-03 12:59 | Outpatient (AMB) | payer OTHER, SELFPAY ==
--- NOTE | 2024-09-03 13:01 | A.OFFVIS_ITS ---
Intake Visit Reasons: follow up US 08/29/24 Intake Note: Patient presents for follow up US performed on 08/29/24. No complaints. Accompanied by: Self / Same As Patient Allergies Seasonal Allergies Allergy (Mild, Verified 09/03/24 13:03) Itchy Eyes cetirizine [From yrte] Adverse Reaction (Verified 09/03/24 13:03) Nausea HPI HPI follow up [facility] 08/29/24: Details: Tammie is presenting today on a follow up to venous insufficiency ultrasound, performed on 08/29/2024. She does continue to have intermittent swelling and pain over bilateral lower extremities. She is also currently being worked up for hypertension, recently going to the ER due to significant hypertension. She denies any symptoms of hypertension, denies headache, dizziness, or lig htheadedness. [facility] Social History Alcohol intake: current Alcohol intake frequency: holidays/special occasions only Alcohol type: hard liquor Current occupational status: employed Current occupation: right hand dominant Review of Systems Const Reports as per HPI and Denies weakness ENT Reports Normal hearing present and Denies dizziness Card Reports as per HPI, Denies chest pain, Denies chest pain at rest, Denies chest pain with activity, Denies dyspnea and Denies dyspnea on exertion Resp Reports as per HPI, Denies cough, Denies dyspnea and Denies dyspnea on exertion GI Reports as per HPI, Denies abdominal pain, Denies nausea and Denies vomiting Musc Denies numbness Skin/Breast Reports as per HPI, Denies erythema and Denies wounds Neuro Reports Normal hearing present, Denies dizziness, Denies numbness, Denies Sensory deficit (Neuro) and Denies weakness Psych Reports no additional complaints Endo Reports no additional complaints Physical Exam Const General: healthy appearing and no acute distress Orientation/consciousness: patient oriented x3 HEENT Head: Yes normal to inspection Ears: hearing grossly normal bilaterally Mouth: Normal oral and palatal mucosa present Resp Effort & Inspection: normal respiratory effort and able to speak in complete sentences Auscultation: clear to auscultation bilaterally Cardio Jugular venous distension: no JVD Rate: regular rate Rhythm: regular rhythm Heart sounds: S1 normal heart sound present and S2 normal heart sound present Bruits: no abdominal aortic bruits, no carotid bruits, no femoral bruits and no renal bruits Peripheral pulses: Peripheral pulses 2+ throughout GI Inspection: Yes normal to inspection Palpation (GI): No Abdominal aortic bruit present Skin General skin exam: no rashes or lesions noted Wounds: no wounds Hair: normal Neuro General: patient oriented x3 Cranial nerves: Yes Normal hearing present Cognition (Neuro): normal cognition Gait exam (Neuro): Normal gait present Motor exam (neuro): 5/5 motor strength present throughout Sensory Exam: No Sensory deficit (Neuro) Extrem Other: Bilateral lower extremities: Multiple areas of spider veins noted. Itching/pain noted in the right upper thigh area with significant spider veins. Palpable DP pulses. No swelling noted now; however patient states by the end of the day that will be swelling in bilateral lower extremities. General: Yes normal to inspection, Yes full ROM, Yes capillary refill normal and Yes normal gait Results Reviewed Results Reviewed: Brief summary of venous insufficiency testing is as follows: right great saphenous vein: negative right small saphenous vein: negative right accessory vein: none present left great saphenous vein: negative left small saphenous vein: negative left accessory vein: none present Please note there is no evidence of any venous aneurysms or significant tortuosity Assessment & Plan Assessment & Plan (1) Varicose veins of both lower extremities with inflammation: Code(s): I83.11 - Varicose veins of right lower extremity with inflammation; I83.12 - Varicose veins of left lower extremity with inflammation Category: Medical Plan: Tammie is presenting today on a follow up to venous insufficiency, performed on 08/29/2024. The ultrasound was negative for any venous insufficiency. She does continue to endorse lower extremity swelling intermittently, worse as the day goes on as well as pain. She is currently getting worked up for hypertension, having multiple episodes of significant hypertension without symptoms. We discussed that her primary care we will be able to access the results of the venous insufficiency ultrasound. We discussed the importance of continuing with compression stockings, elevation, and physical activity. She states currently her doctor does not want her to be wearing compression stockings at this point, until the hypertension is under control. The patient did state they were helping her with the swelling and she will use them once she is cleared to. We discussed that she can reach out to us if the symptoms continue and/or worsen. Thank you for allowing us to participate in the patient's care. If there are any questions or concerns, please do not hesitate to reach out to us. Coding Level of Care Code Est Pt Level 4 (14179) Diagnoses Varicose veins of both lower extremities with inflammation I83.11; I83.12 Comment Review of venous insufficiency ultrasound
--- OUTSIDE RECORDS SUMMARY | 2024-09-03 13:20 | XMS_ITS | Encounter Summary ---
Author Organization [facility] Address [address] [place] [address] Care Team Providers Care Mail Teller Name Role Phone Rui Quiñones MD Primary Care Provider [phone] [phone] Reason for Referral * Consultation (Urgent) - Authorized Specialty Diagnoses / Procedures Referred By Contact Referred To Contact Obstetrics and Gynecology Diagnoses Hot flashes Rui Quiñones MD [address] [place] [address] [facility] [address] Referral ID Status Reason Start Date Expiration Date Visits Requested Visits Authorized [id number] Authorized Specialty Services Required 08/27/2024 08/27/2025 1 1 Reason for Visit * Reason Comments Hypertension Follow up Encounter Details Date Type Department Care Team (Late st Contact Info) Description 08/27/2024 1:30 PM EST Office Visit Internal Medicine - [address] [phone] uRi Quiñones MD [address] [place] [phone] Hypertension, unspecified type (Primary Dx); Palpitations; Hot [...] to be seated at a restaurant in [place]. These episodes typically last less than 10 [...] PM EST Office Visit Internal Medicine - [address] [phone] Rui Quiñones MD [address] [place] [phone] Scheduled Orders Name Type Priority Associated Diagnoses [...] documented as of this encounter Care Teams Mail Teller Relationship Specialty Start Date End Date Rui Quiñones MD [address] [place] [id number] PCP - General Internal Medicine 05/13/16 documented as of this encounter
--- OUTSIDE RECORDS SUMMARY | 2024-09-03 13:20 | XMS_ITS | Encounter Summary ---
Author Organization [facility] Address [address] [place] [address] Care Team Providers Care Programmer Name Role Phone Rui Quiñones MD Primary Care Provider [phone] Reason for Visit * Reason Onset Date Comments Error 06/11/2019 Encounter Details Date Type Department Care Team Description 06/11/2019 Telephone Adult Medicine - [address] [address] Rui Quiñones MD [address] [place] [id number] Error Social History Tobacco Use Types Packs/Day Years [...] on filedocumented in this encounter Care Teams Programmer Relationship Specialty Start Date End Date Rui Quiñones MD [address] [place] [id number] PCP - General Internal Medicine 05/13/16 documented as of this encounter
--- OUTSIDE RECORDS SUMMARY | 2024-09-03 13:20 | XMS_ITS | Encounter Summary ---
Author Organization [facility] Address [address] [place] [address] Care Team Providers Care Spanish Interpreter/Translator Name Role Phone Rui Quiñones MD Primary Care Provider +1 [phone] Encounter Details Date Type Department Care Team Description 02/06/2023 Pt. Non Urgent Medical Question OBGYN - [facility] [address] [address] Carolyn Petit DO Social History Tobacco Use [...] weight). I usually take a multivitamin w Vesta 3 plus vitamins:A, B1, E, Magnesium, Collagen [...] on filedocumented in this encounter Care Teams Spanish Interpreter/Translator Relationship Specialty Start Date End Date Rui Quiñones MD [address] [place] [address] PCP - General Internal Medicine 05/13/16 documented as of this encounter
--- OUTSIDE RECORDS SUMMARY | 2024-09-03 13:20 | XMS_ITS | Encounter Summary ---
Author Organization [facility] Address [address] [place] [address] Care Team Providers Care Soa Engineer Name Role Phone Rui Quiñones MD Primary Care Provider [phone] [phone] Reason for Referral * Consultation (Urgent) - Authorized Specialty Diagnoses / Procedures Referred By Néstor valladares Referred To Contact Cardiology Diagnoses Hypertension, unspecified type Palpitations Rui Quiñones MD [address] [place] [address] [address] Referral ID Status Reason Start Date Expiration Date Visits Requested Visits Authorized [id number] Authorized Specialty Services Required 08/12/2024 08/12/2025 1 1 * Cardiac Stress Testing (Routine) - Authorized Specialty Diagnoses / Procedures Referred By Contamanuel valladares Referred To Contact Cardiology Diagnoses Palpitations Procedures Cardiac holter monitor (<= 48 hours) WV ECG EXTERNAL UP TO 48 HOURS RECORDING WV ECG EXTERNAL < 48 HOURS CONTINUOUS RECORDING/STORAGE R&I BY A PHYS/QHP WV EXTERNAL ECG UP TO 48 HRS INCL RECORDING SCANNING ANLYS W REPORT Rui Quiñones MD [address] [place] [address] [facility] Referral ID Status Reason Start Date Expiration Date V isits Requested Visits Authorized [id number] Authorized 08/12/2024 08/12/2025 1 1 Reason for Visit * Reason Comments ED Follow-up Encounter Details Date Type Department Care Team (Late st Contact Info) Description 08/12/2024 2:00 PM EST Office Visit Internal Medicine - [facility] [address] [place] [address] Rui Quiñones MD [address] [place] [address] Hypertension, unspecified type (Primary Dx); Palpitations Social [...] for an ER follow-up. She went to [place] [facility] on 07/19/2024 complaining of high blood pressure. 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 She also noted [...] PM EST Office Visit Internal Medicine - [address] [address] Rui Quiñones MD [address] [place] [address] Scheduled Orders Name Type Priority Associated Diagnoses [...] 08/27/2024 added in this encounter Care Teams Soa Engineer Relationship Specialty Start Date End Date Rui Quiñones MD [address] [place] [address] PCP - General Internal Medicine 05/13/16 documented as of this encounter
--- OUTSIDE RECORDS SUMMARY | 2024-09-03 13:20 | XMS_ITS | Encounter Summary ---
Author Organization [employer] [employer] [facility] Address [address] [place] [address] Care Team Providers Care Vice President Pharmacy Name Role Phone Rui Quiñones MD Primary Care Provider [phone] [phone] Encounter Details Date Type Department Care Team Description 09/08/2016 Night Triage Doc Medical Records [address] [place] [address] Abstract, Provider Social History Tobacco Use Types [...] on filedocumented in this encounter Care Teams Vice President Pharmacy Relationship Specialty Start Date End Date Rui Quiñones MD [address] [place], [place] [phone] PCP - General Internal Medicine 05/13/16 documented as of this encounter
--- OUTSIDE RECORDS SUMMARY | 2024-09-03 13:20 | XMS_ITS | Clinical Summary ---
Author Organization [place] [address] [facility] Building Address [address] [place] [address] Phone Care Team Providers Care Electric Mule Operator Name Role Phone Rui Quiñones MD Primary Care Provider [phone] [phone] Allergies Active Allergy Reactions Criticality Noted Date [...] PM EST Office Visit Internal Medicine - [address] [address] Rui Quiñones MD Hypertension, unspecified type (Primary Dx); Palpitations; Hot flashes 08/12/2024 2:00 PM EST Office Visit Internal Medicine - [address] [address] Rui Quiñones MD Hypertension, unspecified type (Primary Dx); Palpitations 07/18/2024 9:00 AM EST Office Visit Obstetrics and Gynecology - [address] [address] Kaley Lopez DO Asymptomatic hypertensive urgency (Primary Dx); On hormone replacement therapy from Last 3 Months Immunizations Name Administration Dates Next Due Hepatitis B (Riaxcsw-V-Vgfla , Recombivax HB-Adult) 19yo and older 12/31/2018,11/28/2018 [...] 40w 0d Vag-S pont None Living Delivery Location:[place] Term 40w 0d Vag-S pont None Living Delivery Location:[place] 28w 0d Vag-S pont None Living Delivery Location:[place] Last Filed Vital Signs Vital Sign Reading [...] PM EST Office Visit Internal Medicine - [address] [address] Rui Quiñones MD [address] [place] [address] Health Maintenance Due Date Last Done Comments [...] Procedure Name Priority Date/Time Associated Diagnosis Comments EXTERNAL ULTRASOUND REPORT 08/29/2024 EXTERNAL ULTRASOUND REPORT 08/29/2024 CARDIAC HOLTER MONITOR 08/28/2024 ANNUAL BMP BLOOD TEST Routine 04/28/2020 HEPATITIS C SCREENING Routine 10/04/2016 HIV SCREENING Routine 10/04/2016 HPV Routine 06/01/2016 LIPID PANEL Routine 09/28/2015 from Last 3 Months or Most Recently Relevant to Health Maintenance Results * External Ultrasound Report (08/29/2024) Only the most recent of2 resultswithin the time period is included. Anatomical Region Laterality Modality Ultrasound Provider [facility] US PROCEDURE S * Cardiac holter monitor (<= 48 hours) (08/28/2024) Anatomical Region Laterality Modality Cardiac Diagnost ic Provider [facility] CARDIAC SERVI GREGORIO PROCEDURES * Annual BMP Blood Test (04/28/2020) Pathologist [facility] Annual BMP Blood Test Abstracted Historical Provider [facility] * HIV Screening (10/04/2016) [facility] HIV Screening Abstracted Historical Provider [facility] * Hepatitis C Screening (10/04/2016) Pathologist [facility] Hepatitis C Screening Abstracted Historical Provider [facility] * Cervical Cancer Screening: HPV (06/01/2016) [facility] Cervical Cancer Screening: HPV No interpreta tion,abstr acted Historical Provider MD [facility]IL [facility] (ABNORMAL) Lipid panel (09/28/2015) [facility] LDL/HDL Ratio 4 0 - 4 Triglycerides 118 0 - 150 mg/dL Cholesterol 253(A) 0 - 200 mg/dL HDL 71 40 mg/dL LDL Cholesterol 159(A) 0 - 100 mg/dL Blood Venous blood specimen / Unknown Historical Provider LAB BLOOD ORDERAB LES from Last 3 Months or Most Recently Relevant to Health Maintenance Care Teams Electric Mule Operator Relationship Specialty Start Date End Date Rui Quiñones MD [address] [place] [address] PCP - General Internal Medicine 05/13/16
--- OUTSIDE RECORDS SUMMARY | 2024-09-03 13:20 | XMS_ITS | Encounter Summary ---
Author Organization [facility] Address [address] [place] [address] Care Team Providers Care Transmission Calibration Engineer Name Role Phone Rui Quiñones MD Primary Care Provider [phone] [phone] Encounter Details Date Type Department Care Team Description 08/09/2018 Stone Cutter Report Medical Records [address] [place] [address] Katya Campos, DRE Social History Tobacco Use Types Packs/Day Years [...] on filedocumented in this encounter Care Teams Transmission Calibration Engineer Relationship Specialty Start Date End Date Rui Quiñones MD [address] [place] [address] PCP - General Internal Medicine 05/13/16 documented as of this encounter
--- OUTSIDE RECORDS SUMMARY | 2024-09-03 13:20 | XMS_ITS | Encounter Summary ---
Author Organization [facility] Address [address] [place] [address] Care Team Providers Care Mechanical Process Engineer Name Role Phone Rui Quiñones MD Primary Care Provider [phone] [phone] Reason for Visit * Reason Onset Date Comments Medical Records 03/26/2018 Encounter Details Date Type Department Care Team Description 03/26/2018 Telephone OBGYN - [address] [address] Carolyn Petit DO Medical Records Social History Tobacco Use Types Packs/Day Years Used Date Smoking Tobacco: Former Cigarettes 0.3 3 Q uit: 07/31/2007 Smokeless Tobacco: Never Alcohol Use Standard Drinks/Week Comments No 0 (1 standard drink = 0.6 oz pur e alcohol) occas - whiskey or vodka Sex Assigned at Date Recorded Not on file documented as of this encounter Miscellaneous Notes * Telephone Encounter - Jolie Lemus R.N. - 03/26/2018 2:32 PM EDT msg to for Monday when she is back in office. Needs surgery op note from 03/16/18 (I could not find op note in chart or in [employer]). I did leave message for Thi in Medical Records at [facility] that provider is out of office until . * Telephone Encounter - Delilah Clark - 03/26/2018 2:20 PM EDT Thi calling from Medical records at [facility] - They need op note for 03/16/18 surgery documented in this encounter Plan of Treatment Not on file documented as of this encounter Visit Diagnoses Not on filedocumented in this encounter Care Teams Mechanical Process Engineer Relationship Specialty Start Date End Date Rui Quiñones MD [address] [place] [address] PCP - General Internal Medicine 05/13/16 documented as of this encounter
--- OUTSIDE RECORDS SUMMARY | 2024-09-03 13:20 | XMS_ITS | Encounter Summary ---
Author Organization [facility] Address [address] [place] [address] Care Team Providers Care Director Card Name Role Phone Rui Quiñones MD Primary Care Provider [phone] [phone] Encounter Details Date Type Department Care Team Description 01/27/2023 Taxicab Dispatcher Report Medical Records [address] [place] [address] Terry Deutsch MD Social History Tobacco Use [...] on filedocumented in this encounter Care Teams Director Card Relationship Specialty Start Date End Date Rui Quiñones MD [address] [place] [address] PCP - General Internal Medicine 05/13/16 documented as of this encounter
--- OUTSIDE RECORDS SUMMARY | 2024-09-03 13:20 | XMS_ITS | Encounter Summary ---
Author Organization [facility] Address [address] [place] [address] Care Team Providers Care Book Trimmer Name Role Phone Rui Quiñones MD Primary Care Provider [phone] [phone] Encounter Details Date Type Department Care Team Description 11/10/2017 Release of Information Medical Records [address] [place] [address] Abstract, Provider Social History Tobacco Use Types [...] on filedocumented in this encounter Care Teams Book Trimmer Relationship Specialty Start Date End Date Rui Quiñones MD [address] [place], [place] [phone] PCP - General Internal Medicine 05/13/16 documented as of this encounter
--- OUTSIDE RECORDS SUMMARY | 2024-09-03 13:21 | XMS_ITS | Encounter Summary ---
Author Organization [facility] Address [address] [place] [address] Care Team Providers Care Cook'S Assistant Name Role Phone Denia Michelle MD Primary Care Provider Sharmila Hall MD Primary Care Provider Rui Joaquin MD Primary Care Provider [phone] [phone] Encounter Details Date Type Department Care Team Description 12/13/2014 Pt. Non Urgent Medical Question OBGYN - [facility] [address] [place] [address] Hugo Berrios MD Social History Tobacco Use Types Packs/Day Years Used Date Smoking Tobacco: Former Cigarettes 0.3 3 Smokeless Tobacco: Never Alcohol Use Standard Drinks/Week Comments Yes 0 (1 standard drink = 0.6 oz pur e alcohol) occas - whiskey or vodka Sex Assigned at Date Recorded Not on file documented as of this encounter Progress Notes * Jolie Lemus R.N. - 12/15/2014 9:09 AM EDTFrom: Eliana Saez To: Hugo Berrios MD Sent: 12/13/2014 2:11 PM EDT Subject: Medication refill Hi Doctor, Should I book an appointment to request the acyclovir refill? I picked up the last one from the pharmacy last week. Thank you, Tammie documented in this encounter Plan of Treatment Not on file documented as of this encounter Visit Diagnoses Not on filedocumented in this encounter Care Teams Cook'S Assistant Relationship Specialty Start Date End Date Denia Michelle MD PCP - General Internal Medicine 09/17/14 03/26/15 Sharmila Colón MD PCP - General Internal Medicine 03/27/15 05/12/16 Rui Quiñones MD [address] [place] [address] PCP - General Internal Medicine 05/13/16 documented as of this encounter
--- OUTSIDE RECORDS SUMMARY | 2024-09-03 13:21 | XMS_ITS | Encounter Summary ---
Author Organization [employer] [facility] Address [address] [place] [address] Care Team Providers Care Manager Sustainability Name Role Phone Rui Quiñones MD Primary Care Provider [phone] [phone] Encounter Details Date Type Department Care Team Description 04/08/2022 Grain Scooper Report Medical Records [address] [place] [address] Rj Orozco Social History Tobacco Use Types Packs/Day Years [...] filedocumented in this encounter Care Teams Manager Sustainability Relationship Specialty Start Date End Date Rui Quiñones MD [address] [place], [place] [phone] PCP - General Internal Medicine 05/13/16 documented as of this encounter
--- OUTSIDE RECORDS SUMMARY | 2024-09-03 13:21 | XMS_ITS | Encounter Summary ---
Author Organization [email or web address] [facility] Address [address] [place] [address] Care Team Providers Care Toggler Name Role Phone Rui Quiñones MD Primary Care Provider [phone] [phone] Encounter Details Date Type Department Care Team Description 04/13/2022 Orders Only Medical Records [address] [place] [address] Abstract, Provider Social History Tobacco Use Types [...] on filedocumented in this encounter Care Teams Toggler Relationship Specialty Start Date End Date Rui Quiñones MD [address] [place], [place] [phone] PCP - General Internal Medicine 05/13/16 documented as of this encounter
== END 2024-09-03 13:31 | disposition home or self-care (01) ==
PROVIDERS: PCP Internal Medicine; Visit Provider Physician Assistant Surgical
DX: I83.11 Varicose veins of right lower extremity with inflammation (principal); I83.12 Varicose veins of left lower extremity with inflammation
CPT/HCPCS: 99214

== ENCOUNTER → 2024-09-03 12:59 | Outpatient (BNVA) | payer OTHER, SELFPAY | PROVIDERS: PCP Internal Medicine; Visit Provider Physician Assistant Surgical ==

== ENCOUNTER 2024-09-20 10:26 | Outpatient (REF) | payer OTHER, SELFPAY ==
--- OUTSIDE RECORDS SUMMARY | 2024-09-20 11:23 | XMS_ITS | Encounter Summary ---
Author Organization [facility] Address [address] [place] [address] Care Team Providers Care Title I Math Tutor Name Role Phone Rui Quiñones MD Primary Care Provider [phone] [phone] Reason for Referral * Consultation (Urgent) - Closed Specialty Diagnoses / Procedures Referred By Contact Referred To Contact Obstetrics and Gynecology Diagnoses Hot flashes Rui Quiñones MD [address] [place] [address] Phone: tel: fax: Obstetrics and Gynecology - [address] Phone: tel: fax: Referral ID Status Reason Start Date Expiration Date V isits Requested Visits Authorized [id number] Closed Specialty Services Required 08/27/2024 08/27/2025 1 1 Reason for Visit * Reason Comments Hypertension Follow up Encounter Details Date Type Department Care Team (Late st Contact Info) Description 08/27/2024 1:30 PM EST Office Visit Internal Medicine - [address] [phone] Rui Quiñones MD [address] [place] [address] Hypertension, unspecified type (Primary Dx); Palpitations; Hot flashes Social History Tobacco Use Types Packs/Day Years Used Date Smoking Tobacco: Former Cigarettes Q uit: 07/31/2007 Smokeless Tobacco: Never Tobacco Cessation:Counseling Given: Not Answered Alcohol Use Standard Drinks/Week Comments No 0 (1 standard drink = 0.6 oz pur e alcohol) Comments No Sex and Gender Information Value Date Recorded Sex Assigned at Not on file Legal Sex Female 2:17 AM EST Gender Identity Not on file Sexual Orientation Not on file documented as of this [...] in this encounter Ordered Prescriptions Prescription Sig Dispense Quantity Refills Last Filled Start Date End Date lisinopriL (PRINIVIL,ZESTRIL) 5 mg tablet Take 1 [...] to be seated at a restaurant in [place]. These episodes typically last less than 10 [...] EST Office Visit Internal Medicine - [address] [address] Rui Quiñones MD [address] [place] [address] Scheduled Orders Name Type Priority Associated Diagnoses [...] documented as of this encounter Care Teams Title I Math Tutor Relationship Specialty Start Date End Date Rui Quiñones MD [address] [place] [address] PCP - General Internal Medicine 05/13/16 documented as of this encounter
--- OUTSIDE RECORDS SUMMARY | 2024-09-20 11:23 | XMS_ITS | Encounter Summary ---
Author Organization [facility] Address [address] [place] [address] Care Team Providers Care Printed Circuit Layout Taper Name Role Phone Rui Quiñones MD Primary Care Provider [phone] [phone] Reason for Visit * Reason Comments Menopause * Consultation (Urgent) - Closed Specialty Diagnoses / Procedures Referred By Contact Referred To Contact Obstetrics and Gynecology Diagnoses Hot flashes Rui Quiñones MD [address] [place] [address] Phone: tel: fax: Obstetrics and Gynecology - [address] Phone: tel: fax: Referral ID Status Reason Start Date Expiration Date V isits Requested Visits Authorized [id number] Closed Specialty Services Required 08/27/2024 08/27/2025 1 1 Encounter Details Date Type Department Care Team (Late st Contact Info) Description 09/12/2024 3:00 PM EST Office Visit Obstetrics and Gynecology - [address] [phone] Kaley Lopez DO [address] [place] [address] Hot flashes (Primary Dx) Social History Tobacco Use Types Packs/Day Years Used Date Smoking Tobacco: Former Cigarettes Q uit: 07/31/2007 Smokeless Tobacco: Never Alcohol Use Standard Drinks/Week Comments Yes 0 (1 standard drink = 0.6 oz pur e alcohol) rarely Comments No Sex and Gender Information Value Date Recorded Sex Assigned at Not on file Legal Sex Female 2:17 AM EST Gender Identity Not on file Sexual Orientation Not on file documented as of this encounter Last Filed Vital Signs Vital Sign Reading Time Taken Comments Blood Pressure 144/90 09/12/2024 2:57 PM EST Pulse 106 09/12/2024 2:57 PM EST Temperature - - Respiratory Rate - - Oxygen Saturation - - Inhaled Oxygen Concentration - - Weight 60.8 kg (134 lb) 09/12/2024 2:57 PM EST Height - - Body Mass Index 26.17 08/27/2024 1:26 PM EST documented in this encounter Progress Notes * Kaley Lopez, DO - 09/12/2024 3:00 PM EST CHIEF COMPLAINT: Menopause IDENTIFIER:Tammie Saez is a 49 y.o. female HPI: Pt presents today to discuss management options for menopausal symptoms. She describes daytime hot flashes, fatigue and fogginess as well as night sweats that disturb her sleep. She is most bothered at night because she needs her sleep. She was last seen in June. At that time HRT was stopped due to poorly controlled hypertension. She has since started 2 antihypertensives and her BP today is improved but still high. ROS: GENERAL: Denies fever, chills and unintentional weight changes : negative for dysuria PERSONAL BANKER: See HPI and some vaginal dryness PAST MEDICAL HISTORY: OB History Para Term AB Living 3 3 2 1 3 SAB IAB Ectopic Multiple Live Births 3 # Outcome Date GA Lbr Ba/2nd Weight Sex Type Anes PTL Lv 3 28w0d Vag-Spont None KORTNEY 2 Term 40w0d Vag-Spont None KORTNEY 1 Term 40w0d Vag-Spont None KORTNEY Patient Active Problem List Diagnosis Arthritis of hand Essential hypertension Fibroids HSV infection Hyperlipemia IBS (irritable bowel syndrome) Diagnosis unknown SOCIAL HISTORY: Social History Tobacco Use Smoking status: Former Current packs/day: 0.00 Types: Cigarettes Quit date: 07/31/2007 Years since quittin.1 Smokeless tobacco: Never Substance Use Topics Alcohol use: Yes Comment: rarely Drug use: No FAMILY HISTORY: Family History Problem Relation Name Age of Onset Diabetes Mother HPL Coronary artery disease Father angioplasty with stent, HTN, HPL Breast cancer Aunt 56.00 mothers side Heart attack Brother 44.00 age 44, Asthma Other (Other: gastritis ) Aunt I have reviewed the following sections of the chart: active problem list, medication list, notes from last encounter MEDICATIONS: Your medication list Accurate as of September 12, 2024 5:05 PM. If you have any questions, ask your nurse or doctor. CONTINUE taking these medications Instructions Last Dose Given Next Dose Due amLODIPine 10 mg tablet Commonly known as: NORVASC Take 1 tablet (10 mg total) by mouth 1 (one) time each day. lisinopriL 5 mg tablet Commonly known as: PRINIVIL,ZESTRIL Take 1 tablet (5 mg total) by mouth 1 (one) time each day. Contraception: NA ALLERGIES: Allergies Allergen Reactions Bisacodyl Wheezing Cetirizine Other Heart racing and drowsy PHYSICAL EXAM: Visit Vitals BP (!) 144/90 Pulse 106 Wt 60.8 kg (134 lb) LMP (LMP Unknown) BMI 26.17 kg/m?? OB Status Hysterectomy Smoking Status Former BSA 1.57 m?? APPEARANCE:Healthy, alert, active, cooperative, and in no distress PSYCH: affect appropriate ASSESSMENT: 1. Hot flashes PLAN: Reviewed with Tammie that her symptoms are very common of menopause. Unfortunately she is not a great candidate for HRT due to her BP. She requires two medications and it is still elevated. Other management options were discussed: Lifestyle modification: dress in layers, have fans, stay hydrated, avoid triggers like caffeine andalcohol. Add soy into your diet where you can as this is metabolized into an estrogen-like component. OTC remedies: black cohosh, estroven or ambereen Medical management: gabapentin and/or effexor for management of hot flashes, sleep disturbance and mood instability I recommended gabapentin because she is most bothered at night. She is concerned for the risk of dependency. She would like to this about it and let me know what she'd like to do No orders of the defined types were placed in this encounter. Kaley Lopez DO documented in this encounter Plan of Treatment Upcoming Encounters Date Type Department Care Team (Late st Contact Info) Description 09/24/2024 3:00 PM EST Office Visit Internal Medicine - [facility] [address] [place] [address] Rui Quiñones MD [address] [place] [address] documented as of this encounter Visit Diagnoses Diagnosis Hot flashes- Primary documented in this encounter Orders Outpatient Referral Count Last Ordered Date Fir st Ordered Date AMB REFERRAL TO OB-PERSONAL BANKER 1 09/12/2024 documented in this encounter Care Teams Printed Circuit Layout Taper Relationship Specialty Start Date End Date Rui Quiñones MD [address] [place] [address] PCP - General Internal Medicine 05/13/16 documented as of this encounter
--- OUTSIDE RECORDS SUMMARY | 2024-09-20 11:23 | XMS_ITS | Clinical Summary ---
Author Organization [place] [address] [address] [facility] Building Address [address] [place] [phone] Phone Care Team Providers Care Car Washer Name Role Phone Rui Quiñones MD Primary Care Provider [phone] Allergies Active Allergy Reactions Criticality Noted Date Comments Bisacodyl Wheezing 04/05/2018 Cetirizine Other 08/31/2016 Heart racing and drowsy Medications amLODIPine (NORVASC) 10 mg tablet Take 1 tablet (10 mg total) by mouth 1 (one) time each day. 4 Active lisinopriL (PRINIVIL,ZESTR IL) 5 mg tablet Take 1 tablet (5 mg total) by mouth 1 (one) time each day. 30 each 5 5 Active triamcinolone (KENALOG) 0.1 % cream Apply thin layer to affected area two times a day for up to two weeks 1 08/27/19 25 Discontinue d(Therapy completed) estradioL (ESTRACE) 1 mg tablet Take 1 tablet (1 mg total) by mouth 1 (one) time each day. 4 08/27/19 25 Discontinue d(Discontin ued by another clinician) Active Problems Problem Noted [...] Encounters Date Type Department Care Team Description 09/12/2024 3:00 PM EST Office Visit Obstetrics and Gynecology - [address] [phone] Kaley Lopez DO Hot flashes (Primary Dx) 08/27/2024 1:30 PM EST Office Visit Internal Medicine - [address] [phone] Rui Quiñones MD Hypertension, unspecified type (Primary Dx); Palpitations; Hot flashes 08/12/2024 2:00 PM EST Office Visit Internal Medicine - [address] [phone] Rui Quiñones MD Hypertension, unspecified type (Primary Dx); Palpitations 07/18/2024 9:00 AM EST Office Visit Obstetrics and Gynecology [address] [phone] Kaley Lopez DO Asymptomatic hypertensive urgency (Primary Dx); On hormone replacement therapy from Last 3 Months Immunizations Name Administration Dates Next Due Hepatitis B (Lcbkvas-P-Iuijt , Recombivax HB-Adult) 19yo and older 12/31/2018,11/28/2018 Influenza trivalent, with pr eservative (Fluzone; Afluria) 6mo and older 06/16/2016 Tdap Tetanus diptheria acell ular pertussis (Boostrix; Adacel) 7yo and older 01/06/2014 Surgical History Surgery Date Site/Laterality Comments TUBAL LIGATION 1994 PROCEDURE: HISTORICAL TUBAL LIGATION HYSTERECTOMY 03/16/2018 PROCEDURE: [...] Not Answered Alcohol Use Standard Drinks/Week Comments Yes 0 (1 standard drink = 0.6 oz pur e alcohol) rarely Comments No Sex and Gender Information Value Date Recorded Sex Assigned at Not on file Legal Sex Female 2:17 AM EST Gender Identity Not on file Sexual Orientation Not on file Obstetrics History Para Term AB IAB SAB Ectopic Multiple Livin g Live Births 3 3 2 1 3 3 Date Outcome GA Total Labor Labor/2nd/3rd Weight Sex Type Anes PTL Quiana A1 A5 Name Clin Term 40w 0d Vag-S pont None Living Delivery Location:[place] Term 40w 0d Vag-S pont None Living Delivery Location:[place] 28w 0d Vag-S pont None Living Delivery Location:[place] Last Filed Vital Signs Vital Sign Reading Time Taken Comments Blood Pressure 144/90 09/12/2024 2:57 PM EST Pulse 106 09/12/2024 2:57 PM EST Temperature - - Respiratory Rate 18 07/18/2024 9:11 AM EST Oxygen Saturation - - Inhaled Oxygen Concentration - - Weight 60.8 kg (134 lb) 09/12/2024 2:57 PM EST Height 152.4 cm (5') 08/27/2024 1:26 PM EST Body Mass Index 26.17 08/27/2024 1:26 PM EST Plan of Treatment Upcoming Encounters Date Type Department Care Team (Late st Contact Info) Description 09/24/2024 3:00 PM EST Office Visit Internal Medicine - [facility] [address] [facility] [place] [phone] Rui Quiñones MD [address] [facility] [place] [id number] Health Maintenance Due Date Last Done Comments Breast Cancer Screening 1975 Hepatitis B Vaccines (3 of 3 - 19+ 3-dose series) 05/31/2019 12/31/2018, 11/28/2018 Cervical Cancer Screening: P ap Smear 06/01/2019 06/01/2016, 06/01/2016 Cholesterol Screening (Lipid Panel) 07/03/2022 09/28/2015 Colorectal Cancer Screening: Colonoscopy 07/03/2022 Depression Screening 07/03/2022 Social Influencers of Health Screening 07/03/2022 Hypertension/CHF/CAD Annual BMP Blood Test 07/16/2022 04/28/2020 Pneumococcal Vaccine: 50+ Years (1 of 1 - PCV) 2023 Zoster Vaccines (1 of 2) 2023 DTaP,Tdap,and Td Vaccines (2 - Td or Tdap) 01/07/2024 01/06/2014 COVID-19 Vaccine (4 - 2023-2 5 season) 2024 02/10/2022, 05/19/2021, 04/28/2021 Influenza Vaccine (#1) 2024 , 06/16/2016 HIV Screening Completed 10/04/2016 Hepatitis C [...] patient's age to complete this topic Meningococcal B Vacine Aged Out No lo nger eligible based on patient's age to complete [...] included. Anatomical Region Laterality Modality Ultrasound Provider [facility] IMG US PROCEDURES Final Result * Cardiac holter monitor (<= 48 hours) (08/28/2024) Anatomical Region Laterality Modality Cardiac Diagnost ic Result [facility] Provider [facility] CV CARDIAC SERVICES PROC EDURES Final Result * Annual BMP Blood Test (04/28/2020) Pathologist On license of [facility] Annual BMP Blood Test Abstracted Result [facility] Historical Provider HEALTH MAINTENANCE Final Result * HIV Screening (10/04/2016) Pathologist [facility] HIV Screening Abstracted Historical Provider HEALTH MAINTENANCE Final Result * Hepatitis C Screening (10/04/2016) Pathologist On license of [facility] Hepatitis C Screening Abstracted Historical Provider HEALTH MAINTENANCE Final Result * Cervical Cancer Screening: HPV (06/01/2016) Pathologist On license of [facility] Cervical Cancer Screening: HPV No interpreta tion,abstr acted Historical Provider HEALTH MAINTENANCE Final Result * (ABNORMAL) Lipid panel (09/28/2015) Pathologist [facility] LDL/HDL Ratio 4 0 - 4 Triglycerides 118 0 - 150 mg/dL Cholesterol 253(A) 0 - 200 mg/dL HDL 71 >=40 mg/dL LDL Cholesterol 159(A) 0 - 100 mg/dL Blood Venous blood specimen / Unknown Historical Provider LAB BLOOD ORDERABLES Helen l Result from Last 3 Months or Most Recently Relevant to Health Maintenance Insurance * Guarantor: Tammie Saez Account Type Relation to Patient Date of Phone Billing Address Personal/Family Self 1975 [phone] (Work) [address] [place] [phone] [facility] Care Teams Car Washer Relationship Specialty Start Date End Date Rui Quiñones MD [address] [place] [id number] PCP - General Internal Medicine 05/13/16
[2024-09-20 12:07] LABS: Anion Gap 12 (12-20); Blood Urea Nitrogen 11 mg/dL (9-16); Calcium 9.9 mg/dL (8.4-10.2); Carbon Dioxide 28 mmol/L (22-29); Chloride 104 mmol/L (96-108); Estimated Glomerular Filt Rate > 60; Glucose Random 121 mg/dL (60-115); Potassium 3.7 mmol/L (3.3-5.1); Sodium 140 mmol/L (135-145)
== END 2024-09-20 10:27 | disposition home or self-care (01) ==
LOC: HO.LAB 10:26
PROVIDERS: PCP Internal Medicine; Visit Provider Internal Medicine
DX: I10 Essential (primary) hypertension (principal)
CPT/HCPCS: 36415; 80048